=== PATIENT | female | born 1950 | race Caucasian/White ===

== ENCOUNTER 2020-05-25 16:08 | Inpatient (IN) ==
[2020-05-25 16:16] VITALS: BMI 21.4
--- NOTE | 2020-05-25 16:43 | DR.AMS ---
HPI Time Seen Time Seen by Provider: 05/25/20 16:40 PCP Primary Care Physician: LUKE HPI Comment HPI Comment: PATIENT IS 70YR OLD FEMALE IN ER WITH GENERALIZED WEAKNESS, ANOREXIA AND TROUBLE FOCUSING AND TALKING IN CYCLES THAT IS WORSE TODAY. DENIES TRAUMA, FEVER AND HEADACHE. DENIES CHEST PAIN AND NAUSEA, VOMITING OR DIARRHEA. PATIENT IS NOT EATING OR DRINKING FOR DAYS. NO DYSURIA. Complaint Cheif Complaint Doctors Comments: ANOREXIA, WEAKNESS AND TROUBLE FOCUSING AND TALKNG IN CYCLES THAT IS WORSE TODAY. Chief Complaint:: PT FAMILY STATES "BEING WEAK AND NOT EATING SINCE THURSDAY, TODAY SHE HAS HAD TROUBLE FOCUSING, TELLING THE DATE, AND ALSO TALKING IN CIRCLES." Self Treatment fo Chief Complaint: PT IS ALERT AND ORIENTED TIMES 3 COVID-19 Coronavirus risk:travel/contact w/high risk person: No Has patient experienced Coronavirus symptoms: No Reviewed Nurses Notes Reviewed: Yes Source History Provided: Patient and Family Member Mode of Arrival Mode of Arrival: Ambulatory Timing Onset of Chief Complaint: 05/25/20 Came On: Suddenly Symptoms: Improving Duration Duration: Since Onset Duration: Hours Quality Quality: Change in Behavior and Confusion Severity Severity: Moderate Context Recent: None History Of: None Associated Signs and Symptoms Associated Signs and Symptoms: Generalized Weakness, Change in Behavior, Con fusion, Change in Memory and Decreased Oral Intake PMH PMH Past Medical History: Yes Past Medical History: Anxiety and Hypertension Past Medical History Comment: MITRAL Past Surgical History: Yes Surgical History: Hysterectomy Family History History of Family Medical Conditions: Yes Family Medical History: Cancer, Coronary Artery Disease and Hypertension Social History Does any household member use tobacco: No Alcohol Use: None Do you use any recreational Drugs:: No Lives With: Family Lives Where: Home Infectious screening In the last 2 months have you had wt loss of >10#?: NO Have you had fever, night sweats or hemotysis?: No Have you traveled outside the country in the last 6 months?: No Isolation: Standard ROS Review of Systems Constitutional: See HPI, Weakness, Fatigue and Loss of Appetite; negative Fever Eyes: No Symptoms Reported and See HPI; negative Blurred Vision and Diplopia ENTM: No Symptoms Reported and See HPI; negative Ear Pain, Nose Discharge, Nose Congestion and Throat Pain Respiratoy: No Symptoms Reported and See HPI Cardiovascular: No Symptoms Reported and See HPI; negative Chest Pain Gastrointestinal/Abdominal: No Symptoms Reported and See HPI; negative Abdominal Pain, Diarrhea and Vomiting Genitourinary: No Symptoms Reported and See HPI; negative Dysuria, Frequency and Hematuria Neurological: See HPI and Weakness; negative Headache and Dizziness Musculoskeletal: No Symptoms Reported, See HPI and Back Pain Integumentary: No Symptoms Reported and See HPI; negative Change in Color, Rash and Juandice Hematologic/Lymphatic: No Symptoms Reported and See HPI; negative Easy Bruising and Swollen Glands Endocrine: No Symptoms Reported and See HPI; negative Increased Thirst and Increased Urine Psychiatric: No Symptoms Reported and See HPI All Other Systems: Reviewed and Negative PE Vitals Vital Signs: Temp Pulse Resp BP Pulse Ox 05/25/20 18:00 89 19 147/76 98 05/25/20 17:09 91 H 20 149/74 99 05/25/20 16:09 98.2 F 104 H 20 160/76 99 04/08/13 08:05 175/93 General Limitations: Altered Mental Status General Appearance: Alert and In No Apparent Distress Head Head Exam: Normal Inspection and Atraumatic Head Exam Physical: Other (NONE.) Eyes Eye exam: Normal Appearance and PERRL; negative Scleral Icterus and Conjunctival Injection Pupils: Regular, Round: Bilateral and Reactive: Bilateral ENT ENT Exam: Normal Exam, Normal Oropharynx, Normal External Ear Exam and TM's Normal Bilaterally External Ear Exam: Normal External Inspection; negative Mastoid Tenderness TM/Canal Exam: Bilateral: Normal Nose Exam: Normal Nose Exam and Sinus Tenderness Mouth Exam: Normal Inspection; negative Lip Swelling and Tongue Swelling Throat Exam: Normal Inspection; negative Tonsillar Erythema, Tonsillomegaly and Tonsillar Exudate Neck Neck Exam: Normal Inspection and Trachea Midline; negative Tenderness and Lymphadenopathy Chest Chest Inspection: Normal Inspection and Symmetric Chest Wall Rise; negative Tenderness Respiratory Respiratory Exam: Normal Lung Sounds Bilat; negative Accessory Muscle Use, Chest Wall Tenderness and Respiratory Distress Respiratory Exam: Bilateral: Rhonchi and Lower: Rhonchi Cardiovascular Cardiovascular Exam: Regular Rate, Normal Rhythm and Normal Heart Sounds; negative Systolic Murmur and Diastolic Murmur Abdominal Exam Abdominal Exam: Normal Inspection, Normal Bowel Sounds and Soft; negative Tenderness Extremities Extremities Exam: Normal Inspection and Normal Capillary Refill; negative Tenderness, Edema and Calf Tenderness Back Back Exam: Normal Inspection; negative (R) CVA Tenderness and (L) CVA Tenderness Neurological Neurological Exam: Alert, Oriented X3 and CN II-XII Intact; negative Motor Sensory Deficit Patient Oriented To: Person and Place; negative Time Cranial Nerve Exam: EOM Function (II, III, IV, ): Normal, Facial Sensation (V): Normal, Facial Palsy (VII): Normal, Gag reflex (XI): Normal and Tongue Deviation: Normal Motor Strength - LUE: 5/5 Motor Strength - RUE: 5/5 Motor Strength - LLE: 5/5 Motor Strength - RLE: 5/5 Upper Motor Neuron Exam: Babinski Sign: Normal Psychological Psychiatric Exam: Normal Affect and Normal Mood Skin Skin Exam: Dry MDM Additional Information Obtained Additional Information Obtained From: Old Records Differential Diagnosis Metabolic: Dehydration, Hypercalcemia, Hypernatremia, Hypoglycemia and Hyponatremia Structural: CVA and Mass Lesion Infectious: Sepsis and UTI COURSE Treatment Treatment: SEE ORDERS. Education/Counseling Education/Counseling: Patient Educated On: Diagnosis and Needs for Follow Up ROR Labs Reviewed Laboratory Results Reviewed?: Yes Result Diagrams: 05/30/20 04:20 05/30/20 04:20 Laboratory: WBC 7.7 X10^3/uL (3.6-10.0) 05/25/20 17:30 RBC 4.14 X10^6/uL (3.5-5.4) 05/25/20 17:30 Hgb 13.7 g/dL (12.0-16.0) 05/25/20 17:30 Hct 38.1 % (36.0-47.0) 05/25/20 17:30 MCV 92.0 fL (80.0-100.0) 05/25/20 17:30 MCH 33.0 pg (27.0-34.0) 05/25/20 17:30 MCHC 35.9 g/dL (33.0-35.0) H 05/25/20 17:30 RDW 14.0 % (11.6-16.5) 05/25/20 17:30 Plt Count 244 X10^3/uL (150.0-450.0) 05/25/20 17:30 MPV 8.1 fL (7.4-11.0) 05/25/20 17:30 Neut % (Auto) 71.2 % (42.0-75.0) 05/25/20 17:30 Lymph % (Auto) 18.3 % (21.0-51.0) L 05/25/20 17:30 [place] % (Auto) 9.2 % (0.0-13.0) 05/25/20 17:30 Eos % (Auto) 0.7 % (0.9-2.9) L 05/25/20 17:30 Baso % (Auto) 0.6 % (0.2-1.0) 05/25/20 17:30 Neut # (Auto) 5.5 x10^3/uL (2.2-4.8) H 05/25/20 17:30 Lymph # (Auto) 1.4 X10^3/uL (1.3-2.9) 05/25/20 17:30 [place] # (Auto) 0.7 x10^3/uL (0.3-0.8) 05/25/20 17:30 Eos # (Auto) 0.1 x10^3/uL (0.0-0.2) 05/25/20 17:30 Baso # (Auto) 0.0 X10^3/uL (0.0-0.1) 05/25/20 17:30 Absolute Nucleated RBC 0.0 /100WBC 05/25/20 17:30 Sodium 114 mmol/L (136-145) L* 05/25/20 17:30 Corrected Sodium TNP 05/25/20 17:30 Potassium 3.3 mmol/L (3.5-5.1) L 05/25/20 17:30 Chloride 80 mmol/L (98-107) L* 05/25/20 17:30 Carbon Dioxide 26.3 mmol/L (21-32) 05/25/20 17:30 BUN 9 mg/dL (7-18) 05/25/20 17:30 Creatinine 0.45 mg/dL (0.55-1.02) L 05/25/20 17:30 Est GFR (MDRD) Af Amer > 60 (>60) 05/25/20 17:30 Est GFR (MDRD) Non-Af > 60 (>60) 05/25/20 17:30 Glucose 101 mg/dL (65-99) H 05/25/20 17:30 Calcium 9.2 mg/dL (8.5-10.1) 05/25/20 17:30 Corrected Calcium TNP 05/25/20 17:30 Total Bilirubin 1.00 mg/dL (0.2-1.0) 05/25/20 17:30 AST 18 Units/L (15-37) 05/25/20 17:30 ALT 19 Units/L (12-78) 05/25/20 17:30 Alkaline Phosphatase 72 Units/L (46-116) 05/25/20 17:30 Creatine Kinase 72 Units/L (26-192) 05/25/20 17:30 CK-MB (CK-2) 1.8 ng/mL (0-4.0) 05/25/20 17:30 CK/CKMB % Calc 2.5 % (<4) 05/25/20 17: Troponin I < 0.02 ng/mL (0-1.5) 05/25/20 17:30 Total Protein 7.6 g/dL (6.4-8.2) 05/25/20 17: Albumin 4.0 g/dL (3.4-5.0) 05/25/20 17: Globulin 3.6 g/dL (2.5-4.5) 05/25/20 17:30 Albumin/Globulin Ratio 1.1 Ratio (1.1-2.1) 05/25/20 17:30 Specimen Type Clean catch urine 05/25/20 17:06 Urine Color Yellow (YELLOW) 05/25/20 17:06 Urine Appearance Clear (CLEAR) 05/25/20 17:06 Urine pH 5.0 (5.0 - 8.0) 05/25/20 17:06 Ur Specific [place] 1.025 (1.000-1.030) 05/25/20 17:06 Urine Protein Negative (NEGATIVE) 05/25/20 17:06 Urine Glucose (UA) Negative (NEGATIVE) 05/25/20 17:06 Urine Ketones 3+ (NEGATIVE) 05/25/20 17:06 Urine Occult Blood 3+ (NEGATIVE) 05/25/20 17:06 Urine Nitrite Negative (NEGATIVE) 05/25/20 17:06 Urine Bilirubin Negative (NEGATIVE) 05/25/20 17:06 Urine Urobilinogen Normal (NORMAL) 05/25/20 17:06 Ur Leukocyte Esterase Negative (NEGATIVE) 05/25/20 17:06 Urine RBC 5-10 /HPF (0-3) A 05/25/20 17:06 Urine WBC 0-2 /HPF (0-5) 05/25/20 17:06 Ur Squamous Epith Cells Few /HPF (NEGATIVE) 05/25/20 17:06 Urine Bacteria Trace /HPF (NEGATIVE) 05/25/20 17:06 Ur Culture Indicated? No/not indicated 05/25/20 17:06 XRAY XRAY Interpreted by: Radiologist (REPORTS NOTED AND DISCUSSED WITH PATIENT.) and Self EKG Rate: 97 [place]: Normal Rhythm: NSR Block: None Hypertrophy: LAE ST: Nonsp Opioid Opioid Risk Tool Total: 0 Total Score Risk Category: Low Risk Copyright: [place] predicting aberrant behaviors Diagnosis Discharge Problem: Acute hyponatremia, Hypokalemia, Ketonuria, Anorexia AMS (altered mental status) Qualifiers: Altered mental status type: transient alteration of awareness Qualified Code(s): R40.4 - Transient alteration of awareness Hematuria Qualifiers: Hematuria type: unspecified type Qualified Code(s): R31.9 - Hematuria, unspecified Instructions Instructions: Fall Prevention in the Home, Adult, [id number] Confusion Hypokalemia Major Depressive Disorder, Adult Supporting Someone With Depression Complicated Grieving Hypertension, [id number] Hyponatremia, [id number] Forms: Precautions for COVID19 Patient Portal Social Distancing
--- NOTE | 2020-05-25 17:28 | RAD ---
HISTORYDISORIENTED, SOB, WEAKNESSSTUDYCHEST, PA/LAT ADULTCOMPARISONNoneFINDINGSThe heart is normal. The pulmonary vessels are normal. The heart is normal. The pulmonary vessels are normal. The lungs are hyperinflated and emphysematous. There are nipple shadows projecting along the lung bases. No consolidation or effusion is seen.IMPRESSIONChronic obstructive lung changes with no acute pulmonary abnormality.Electronically signed by: ARI NATION (May 25, 2020 17:27:53)
--- NOTE | 2020-05-25 17:28 | CT ---
HISTORYDISORIENTED, SOB, WEAKNESSSTUDYBRAIN W/O CONCOMPARISONNoneTECHNIQUEMultiple axial images of the head were performed from the skull base to the vertex using standard departmental protocol. Sagittal and coronal reformatted images were performed. Dose reduction techniques including Automated Exposure Control (AEC) and adjustment of mA and kV were utilized.FINDINGSNo evidence of acute territorial infarct. No acute intracranial hemorrhage. No evidence of intracranial mass or midline shift. No hydrocephalus. No abnormal intra or extra-axial fluid collections. Mild chronic small vessel ischemic changes. Intracranial vascular calcifications.The calvaria is intact. Calcified subcutaneous lesions overlying the calvaria. The bilateral mastoid air cells and visualized paranasal sinuses are well pneumatized. The bilateral orbits are unremarkable.IMPRESSIONNo acute intracranial findings.Electronically signed by: DEVON SARMIENTO (May 25, 2020 17:30:07)
[2020-05-25 17:48] LABS: BILIRUBIN,URINE NEGATIVE (NEGATIVE); BLOOD/HEMOGLOBIN,URINE 3+ (NEGATIVE); GLUCOSE, URINE NEGATIVE (NEGATIVE); KETONES,URINE 3+ (NEGATIVE); LEUKOCYTE ESTERASE ,URINE NEGATIVE (NEGATIVE); NITRITES,URINE NEGATIVE (NEGATIVE); PROTEIN,URINE NEGATIVE (NEGATIVE); UROBILINOGEN,URINE NORMAL (NORMAL)
[2020-05-25 17:48] LABS: BASOPHILS % (AUTO) 0.6 % (0.2-1.0); EOSINOPHILS # (AUTO) 0.1 x10^3/uL (0.0-0.2); EOSINOPHILS % (AUTO) 0.7 % (0.9-2.9); HEMATOCRIT 38.1 % (36.0-47.0); HEMOGLOBIN 13.7 g/dL (12.0-16.0); LYMPHOCYTES # (AUTO) 1.4 X10^3/uL (1.3-2.9); LYMPHOCYTES % (AUTO) 18.3 % (21.0-51.0); MEAN CORPUSCULAR HGB CONC 35.9 g/dL (33.0-35.0); MEAN PLATELET VOLUME 8.1 fL (7.4-11.0); MONOCYTES # (AUTO) 0.7 x10^3/uL (0.3-0.8); MONOCYTES % (AUTO) 9.2 % (0.0-13.0); NEUTROPHILS # (AUTO) 5.5 x10^3/uL (2.2-4.8); NEUTROPHILS % (AUTO) 71.2 % (42.0-75.0); PLATELET COUNT 244 X10^3/uL (150.0-450.0); RED BLOOD COUNT 4.14 X10^6/uL (3.5-5.4); WHITE BLOOD COUNT 7.7 X10^3/uL (3.6-10.0)
[2020-05-25 18:10] LABS: APPEARANCE,URINE CLEAR (CLEAR); COLOR,URINE YELLOW (YELLOW)
[2020-05-25 18:11] LABS: BACTERIA,URINE TRACE /HPF (NEGATIVE); SQUAMOUS EPITHELIAL CELL,UR FEW /HPF (NEGATIVE)
[2020-05-25 18:13] LABS: ALANINE AMINOTRANSFERASE 19 Units/L (12-78); ALKALINE PHOSPHATASE 72 Units/L (46-116); ASPARTATE AMINO TRANSFERASE 18 Units/L (15-37); BLOOD UREA NITROGEN 9 mg/dL (7-18); CALCIUM 9.2 mg/dL (8.5-10.1); CARBON DIOXIDE 26.3 mmol/L (21-32); CKMB % 2.5 % (<4); CREATINE KINASE 72 Units/L (26-192); CREATINE KINASE MB 1.8 ng/mL (0-4.0); CREATININE 0.45 mg/dL (0.55-1.02); TOTAL PROTEIN 7.6 g/dL (6.4-8.2); TROPONIN I < 0.02 ng/mL (0-1.5); eGFR NON BLACK RACES > 60 (>60)
[2020-05-25 18:15] LABS: CHLORIDE 80 mmol/L (98-107); SODIUM 114 mmol/L (136-145)
[2020-05-25] MEDS ORDERED: NS 1000 ML 1,000 ML ONE (18:24)
[2020-05-25] MEDS ORDERED: NS 1000 ML 1,000 ML IV ONE (18:34)
[2020-05-25] MEDS ORDERED: NS 1/2 1000 ML IV 1,000 ML IV ONE (19:45)
[2020-05-25] MEDS: NS 1/2 1000 ML IV 1,000 ML IV SCH (20:03)
[2020-05-25] MEDS ORDERED: VITAMIN D (1.25MG) PO SCH (20:47)
[2020-05-25] MEDS: MEGACE PO SCH (22:00)
[2020-05-25] MEDS: PEPCID TAB 20 MG PO SCH (22:00)
[2020-05-25 22:07] LABS: BILIRUBIN,URINE NEGATIVE (NEGATIVE); BLOOD/HEMOGLOBIN,URINE 3+ (NEGATIVE); GLUCOSE, URINE NEGATIVE (NEGATIVE); KETONES,URINE 3+ (NEGATIVE); LEUKOCYTE ESTERASE ,URINE NEGATIVE (NEGATIVE); NITRITES,URINE NEGATIVE (NEGATIVE); PROTEIN,URINE NEGATIVE (NEGATIVE); UROBILINOGEN,URINE NORMAL (NORMAL)
[2020-05-25 22:12] LABS: APPEARANCE,URINE CLEAR (CLEAR); BACTERIA,URINE NEGATIVE /HPF (NEGATIVE); COLOR,URINE YELLOW (YELLOW); RBC,URINE 0-2 /HPF (0-3); SQUAMOUS EPITHELIAL CELL,UR RARE /HPF (NEGATIVE)
[2020-05-25] MEDS ORDERED: NORCO 5/325 MG TAB ONE (22:54)
[2020-05-25] MEDS: NORCO 5/325 MG TAB PO PRN (22:57)
[2020-05-25 23:50] LABS: CKMB % 1.8 % (<4); CREATINE KINASE 83 Units/L (26-192); CREATINE KINASE MB 1.5 ng/mL (0-4.0); TROPONIN I < 0.02 ng/mL (0-1.5)
[2020-05-26] MEDS ORDERED: K-RIDER 10 MEQ/NS 100 ML 10 MEQ/100 ML BAG IV PRN (00:47)
[2020-05-26] MEDS ORDERED: POTASSIUM CHL 40 MEQ/NS 0.45% 500 ML IV PRN (00:47)
[2020-05-26] MEDS ORDERED: POTASSIUM CHLORIDE LIQ 20 MEQ UDC PO PRN (00:47)
[2020-05-26] MEDS ORDERED: MICRO K EXTEN CAP 10 MEQ PO PRN (00:47)
[2020-05-26] MEDS ORDERED: KLOR-CON PO PRN (00:47)
[2020-05-26] MEDS ORDERED: POTASSIUM CHL 60 MEQ/NS 0.45% 500 ML IV PRN (00:47)
[2020-05-26] MEDS ORDERED: K-DUR TAB 20 MEQ PO ONE (00:56)
[2020-05-26] MEDS: K-DUR TAB 20 MEQ PO PRN ×2 (00:59→06:15)
[2020-05-26 05:12] LABS: BASOPHILS % (AUTO) 0.7 % (0.2-1.0); EOSINOPHILS # (AUTO) 0.1 x10^3/uL (0.0-0.2); EOSINOPHILS % (AUTO) 1.1 % (0.9-2.9); HEMATOCRIT 36.8 % (36.0-47.0); HEMOGLOBIN 13.2 g/dL (12.0-16.0); LYMPHOCYTES # (AUTO) 1.4 X10^3/uL (1.3-2.9); MEAN CORPUSCULAR HGB CONC 35.9 g/dL (33.0-35.0); MEAN CORPUSCULAR VOLUME 91.9 fL (80.0-100.0); MEAN PLATELET VOLUME 8.1 fL (7.4-11.0); MONOCYTES # (AUTO) 0.5 x10^3/uL (0.3-0.8); MONOCYTES % (AUTO) 8.8 % (0.0-13.0); NEUTROPHILS # (AUTO) 3.6 x10^3/uL (2.2-4.8); NEUTROPHILS % (AUTO) 64.4 % (42.0-75.0); PLATELET COUNT 230 X10^3/uL (150.0-450.0); RED BLOOD COUNT 4.01 X10^6/uL (3.5-5.4); RED CELL DISTRIBUTION WIDTH 13.6 % (11.6-16.5); WHITE BLOOD COUNT 5.6 X10^3/uL (3.6-10.0)
[2020-05-26 05:37] LABS: ALANINE AMINOTRANSFERASE 17 Units/L (12-78); ALBUMIN 3.5 g/dL (3.4-5.0); ALKALINE PHOSPHATASE 69 Units/L (46-116); ASPARTATE AMINO TRANSFERASE 18 Units/L (15-37); BLOOD UREA NITROGEN 5 mg/dL (7-18); CALCIUM 8.6 mg/dL (8.5-10.1); CARBON DIOXIDE 27.1 mmol/L (21-32); CHLORIDE 86 mmol/L (98-107); CKMB % 1.4 % (<4); CREATINE KINASE 111 Units/L (26-192); CREATINE KINASE MB 1.6 ng/mL (0-4.0); CREATININE 0.43 mg/dL (0.55-1.02); MAGNESIUM 1.7 mg/dL (1.7-2.9); TROPONIN I < 0.02 ng/mL (0-1.5); eGFR NON BLACK RACES > 60 (>60)
[2020-05-26 05:52] LABS: SODIUM 118 mmol/L (136-145)
[2020-05-26] MEDS: MAGNESIUM SULFATE 1 GRAM/100 mL PREMIX 1 GM/100 ML BAG IV PRN ×2 (06:14→08:28)
[2020-05-26] MEDS ORDERED: PATIENT'S HOME MEDICATION (Levocetirizine 5 MG) PO SCH (09:00)
--- NOTE | 2020-05-26 10:32 | DR.H&P ---
H&P - History & Physical for Day of: H&P Date: 05/25/20 - Chief Complaint Chief Complaint: WEAKNESS, CONFUSION - History of Present Illness History of Present Illness: PT IS 70WF ER ADMISSION WITH CO NO EATING OR DRINKING X 2-3 DAYS WITH INCREASED WEAKNESS AND CONFUSION. PT HAD NA 114 IN ER, CT HEAD WITHOUT ACUTE FINDING. PT ADMITTED FOR TREATMENT OF SEVERE HYPONATREMIA. - Past Medical History Past Medical History: Hypertension, Anxiety - Past Surgical History Surgical History: Hysterectomy - Family History Family Medical History: Cancer, Coronary Artery Disease, Hypertension - Social History Does any household member use tobacco: No Alcohol Use: None Drug Use: None - Medications Home Medications: Penicillins Adverse Reaction (Verified 05/25/20 19:03) pseudoephedrine Adverse Reaction (Verified 05/25/20 19:04) Sulfa (Sulfonamide Antibiotics) [SULFA] Adverse Reaction (Verified 05/25/20 19:04) triprolidine Adverse Reaction (Verified 05/25/20 19:04) CONTINUE taking the following medications clonazepam 0.5 mg PO DAILY 05/25/20 [History] doxycycline hyclate 100 mg PO BID 05/25/20 [History] ergocalciferol (vitamin D2) 1,250 mcg PO WEEKLY 05/25/20 [History] famotidine 20 mg PO BID 05/25/20 [History] levocetirizine 5 mg PO DAILY 05/25/20 [History] lisinopril 10 mg PO DAILY 05/25/20 [History] megestrol 40 mg PO BID 05/25/20 [History] metoprolol succinate 25 mg PO DAILY 05/25/20 [History] montelukast 10 mg PO DAILY 05/25/20 [History] rosuvastatin 5 mg PO DAILY 05/25/20 [History] - Review of Systems Constitutional: Weakness Eyes: No Symptoms Reported ENT: No Symptoms Reported Respiratory: No Symptoms Reported Gastrointestinal: No Symptoms Reported Genitourinary: No Symptoms Reported Musculoskeletal: No Symptoms Reported Skin: No Symptoms Reported Neurological: Weakness, Confusion - Physical Exam Vital Signs: Temperature 98.0 F Pulse Rate [Left Brachial] 78 Pulse Rate 89 Respiratory Rate 20 Blood Pressure [Right Arm] 151/67 Blood Pressure 147/76 O2 Sat by Pulse Oximetry 100 Oriented: Person Eyes: Normal Ear: Normal Nose: Normal Throat: Dry Respiratory: RLL Diminished, LLL Diminished Cardiovascular: Tachycardia : Normal Auscultation: Bowel Sounds: Normal Palpation: Normal Tenderness: Normal Musculoskeletal: Right, Left, Motor Deficit Psychiatric: Anxiety Affect: Anxious Speech Pattern: Delayed - Assessment/Plan (1) AMS (altered mental status) Qualifiers: Altered mental status type: transient alteration of awareness Qualified Code(s): R40.4 - Transient alteration of awareness Status: Acute Plan: ADMIT, CT HEAD ON ADMISSION. GENTLE IV HYDRATION, STRICT I&O. ADMISSION CXR, DAILY LABS, BP CONTROL. CONFIRM HOME MEDICATION, HOLD ANY DIURETICS ON ADMISSION. NEURO CHECKS Q 4 X 24 (2) Acute hyponatremia Status: Acute (3) Benign hypertension Status: Active - Allergies Allergies/Adverse Reactions: Allergies Allergy/AdvReac Type Severity Reaction Status Date / Time Penicillins AdvReac Verified 05/25/20 19:03 pseudoephedrine AdvReac Verified 05/25/20 19:04 Sulfa (Sulfonamide AdvReac Verified 05/25/20 19:04 Antibiotics) [SULFA] triprolidine AdvReac Verified 05/25/20 19:04
[2020-05-26] MEDS: ZESTRIL TAB 10 MG PO SCH (10:36)
[2020-05-26] MEDS: KLONOPIN TAB 0.5 MG PO SCH (10:37)
[2020-05-26] MEDS: MEGACE PO SCH ×2 (10:38→21:09)
[2020-05-26] MEDS: PEPCID TAB 20 MG PO SCH ×2 (10:38→21:09)
[2020-05-26] MEDS: CRESTOR TAB 10 MG PO SCH (10:38)
[2020-05-26] MEDS: ZyrTEC TAB 10 MG PO SCH (10:39)
[2020-05-26] MEDS: TOPROL XL PO SCH (10:39)
[2020-05-26] MEDS: SINGULAIR TAB 10 MG PO SCH (10:43)
[2020-05-26 10:56] LABS: FREE T4 (FREE THYROXINE) 1.46 ng/dL (0.76-1.46); TSH (3RD GENERATION) 1.783 uIU/mL (0.358-3.74)
[2020-05-26] MEDS ORDERED: VIBRAMYCIN PO ONE (13:40)
[2020-05-26] MEDS: VIBRAMYCIN PO SCH ×2 (13:55→21:10)
[2020-05-26] MEDS ORDERED: NS 1/2 1000 ML IV 1,000 ML IV ONE (19:23)
[2020-05-26] MEDS: NS 1/2 1000 ML IV 1,000 ML IV SCH (19:24)
[2020-05-26] MEDS: NORCO 5/325 MG TAB PO PRN (21:10)
[2020-05-27] MEDS ORDERED: NS 1/2 1000 ML IV 1,000 ML IV ONE (05:14)
[2020-05-27 05:40] LABS: BASOPHILS % (AUTO) 0.6 % (0.2-1.0); EOSINOPHILS % (AUTO) 0.6 % (0.9-2.9); HEMATOCRIT 35.4 % (36.0-47.0); HEMOGLOBIN 12.5 g/dL (12.0-16.0); LYMPHOCYTES # (AUTO) 1.9 X10^3/uL (1.3-2.9); LYMPHOCYTES % (AUTO) 23.1 % (21.0-51.0); MEAN CORPUSCULAR HEMOGLOBIN 32.8 pg (27.0-34.0); MEAN CORPUSCULAR HGB CONC 35.3 g/dL (33.0-35.0); MEAN PLATELET VOLUME 8.4 fL (7.4-11.0); MONOCYTES # (AUTO) 0.8 x10^3/uL (0.3-0.8); NEUTROPHILS # (AUTO) 5.6 x10^3/uL (2.2-4.8); NEUTROPHILS % (AUTO) 66.7 % (42.0-75.0); PLATELET COUNT 224 X10^3/uL (150.0-450.0); RED BLOOD COUNT 3.81 X10^6/uL (3.5-5.4); RED CELL DISTRIBUTION WIDTH 14.4 % (11.6-16.5); WHITE BLOOD COUNT 8.4 X10^3/uL (3.6-10.0)
[2020-05-27] MEDS: NS 1/2 1000 ML IV 1,000 ML IV SCH ×2 (05:44→22:45)
[2020-05-27 05:56] LABS: ALANINE AMINOTRANSFERASE 14 Units/L (12-78); ALKALINE PHOSPHATASE 57 Units/L (46-116); ASPARTATE AMINO TRANSFERASE 12 Units/L (15-37); BLOOD UREA NITROGEN 6 mg/dL (7-18); CALCIUM 8.3 mg/dL (8.5-10.1); CHLORIDE 96 mmol/L (98-107); COR CA(FOR HYPOALB) 9.1 mg/dL (8.5-10.1); CREATININE 0.39 mg/dL (0.55-1.02); MAGNESIUM 2.1 mg/dL (1.7-2.9); SODIUM 129 mmol/L (136-145); TOTAL PROTEIN 6.3 g/dL (6.4-8.2); eGFR NON BLACK RACES > 60 (>60)
[2020-05-27] MEDS: CRESTOR TAB 10 MG PO SCH (08:53)
[2020-05-27] MEDS: KLONOPIN TAB 0.5 MG PO SCH (08:55)
[2020-05-27] MEDS: MEGACE PO SCH ×2 (08:55→21:30)
[2020-05-27] MEDS: PEPCID TAB 20 MG PO SCH ×2 (08:55→21:30)
[2020-05-27] MEDS: TOPROL XL PO SCH (08:56)
[2020-05-27] MEDS: VIBRAMYCIN PO SCH ×2 (08:56→21:30)
[2020-05-27] MEDS: SINGULAIR TAB 10 MG PO SCH (08:56)
[2020-05-27] MEDS: ZyrTEC TAB 10 MG PO SCH (08:57)
[2020-05-27] MEDS: ZESTRIL TAB 10 MG PO SCH (08:57)
[2020-05-27] MEDS ORDERED: MILK OF MAGNESIA ONE (09:54)
[2020-05-27] MEDS: MILK OF MAGNESIA PO SCH ×2 (10:00→21:30)
[2020-05-27] MEDS: NORCO 5/325 MG TAB PO PRN (10:00)
[2020-05-27] MEDS: COLACE CAP 100 MG PO SCH (21:30)
[2020-05-28 05:51] LABS: BASOPHILS # (AUTO) 0.1 X10^3/uL (0.0-0.1); BASOPHILS % (AUTO) 0.8 % (0.2-1.0); EOSINOPHILS # (AUTO) 0.1 x10^3/uL (0.0-0.2); EOSINOPHILS % (AUTO) 1.6 % (0.9-2.9); HEMATOCRIT 38.8 % (36.0-47.0); HEMOGLOBIN 13.2 g/dL (12.0-16.0); LYMPHOCYTES # (AUTO) 2.3 X10^3/uL (1.3-2.9); LYMPHOCYTES % (AUTO) 37.4 % (21.0-51.0); MEAN CORPUSCULAR HEMOGLOBIN 32.5 pg (27.0-34.0); MEAN CORPUSCULAR HGB CONC 34.1 g/dL (33.0-35.0); MEAN CORPUSCULAR VOLUME 95.2 fL (80.0-100.0); MONOCYTES # (AUTO) 0.5 x10^3/uL (0.3-0.8); MONOCYTES % (AUTO) 8.8 % (0.0-13.0); NEUTROPHILS # (AUTO) 3.1 x10^3/uL (2.2-4.8); NEUTROPHILS % (AUTO) 51.4 % (42.0-75.0); PLATELET COUNT 230 X10^3/uL (150.0-450.0); RED BLOOD COUNT 4.07 X10^6/uL (3.5-5.4); RED CELL DISTRIBUTION WIDTH 14.4 % (11.6-16.5); WHITE BLOOD COUNT 6.1 X10^3/uL (3.6-10.0)
[2020-05-28 06:10] LABS: ALANINE AMINOTRANSFERASE 17 Units/L (12-78); ALBUMIN 3.1 g/dL (3.4-5.0); ALKALINE PHOSPHATASE 59 Units/L (46-116); ASPARTATE AMINO TRANSFERASE 13 Units/L (15-37); BLOOD UREA NITROGEN 10 mg/dL (7-18); CALCIUM 8.6 mg/dL (8.5-10.1); CARBON DIOXIDE 24.1 mmol/L (21-32); CHLORIDE 97 mmol/L (98-107); COR CA(FOR HYPOALB) 9.3 mg/dL (8.5-10.1); CREATININE 0.46 mg/dL (0.55-1.02); SODIUM 131 mmol/L (136-145); TOTAL PROTEIN 6.8 g/dL (6.4-8.2); eGFR NON BLACK RACES > 60 (>60)
[2020-05-28] MEDS: KLONOPIN TAB 0.5 MG PO SCH ×2 (08:58→21:53)
[2020-05-28] MEDS: CRESTOR TAB 10 MG PO SCH (08:58)
[2020-05-28] MEDS: MILK OF MAGNESIA PO SCH ×2 (08:59→21:54)
[2020-05-28] MEDS: MEGACE PO SCH ×2 (08:59→21:54)
[2020-05-28] MEDS: TOPROL XL PO SCH (09:00)
[2020-05-28] MEDS: ZESTRIL TAB 10 MG PO SCH (09:01)
[2020-05-28] MEDS: ZyrTEC TAB 10 MG PO SCH (09:01)
[2020-05-28] MEDS: VIBRAMYCIN PO SCH ×2 (09:01→21:54)
[2020-05-28] MEDS: SINGULAIR TAB 10 MG PO SCH (09:10)
[2020-05-28] MEDS: LOVENOX INJ 40 MG SYR SC SCH (11:01)
[2020-05-28] MEDS: PEPCID TAB 20 MG PO SCH ×2 (11:10→21:54)
[2020-05-28] MEDS ORDERED: NS 1/2 1000 ML IV 1,000 ML IV ONE (18:24)
[2020-05-28] MEDS: NS 1/2 1000 ML IV 1,000 ML IV SCH (18:25)
--- NOTE | 2020-05-28 20:00 | PCM.PROG ---
Progress Note - Progress Note for Day of Date of Exam: 05/28/20 - Subjective Subjective: WAS ADMITTED ON 05/25 FOR TREATMENT OF HYPONATREMIA AND ALTERED MENTAL STATUS. TODAY, SHE IS ALERT AND ORIENTED, SITTING UP IN BED ON MORNING ROUNDS. SHE REPORTS THAT SHE HAS BEEN DEPRESSED OVER THE PAST FEW WEEKS AND HAS NOT BEEN EATING OR SLEEPING WELL. SHE REPORTS WEAKNESS AND LACK OF ENERGY TODAY. ON EXAMINATION, HEART IS REGULAR IN RATE AND RHYTHM. BILATERAL LUNGS ARE NOTED WITH DIMINISHED LUNG SOUNDS THROUGHOUT. ABDOMEN IS FLAT, SOFT, AND NON-TENDER WITH NORMAL BOWEL SOUNDS NOTED IN ALL QUADRANTS. HER VITALS THIS MORNING ARE: 99.4-91-20-100%-133/65. LABS WERE OBTAINED. ABNORMAL LAB VALUES INCLUDE THE FOLLOWING: SODIUM 131, CHLORIDE 97, CREATININE 0.46, AST 13, ALBUMIN 3.1. SHE IS CURRENTLY RECEIVING 1/2NS AT 50 ML/HR, THE POTASSIUM AND MAGNESIUM PROTOCOLS, LOVENOX 40MG SC DAILY, AND HER HOME MEDICATIONS WERE RESUMED. WE WILL CONTINUE WITH CURRENT PLAN OF CARE TODAY AND CHECK A URINE SODIUM LEVEL. OTHERWISE, WE WILL FOLLOW UP WITH AM LABS AND CONTINUE TO MONITOR. - Past Medical Family Social History Past Med/Fam/Surg Hx: No changes since H&P Allergies: Allergies Penicillins Adverse Reaction (Verified 05/25/20 19:03) pseudoephedrine Adverse Reaction (Verified 05/25/20 19:04) Sulfa (Sulfonamide Antibiotics) [SULFA] Adverse Reaction (Verified 05/25/20 19:04) triprolidine Adverse Reaction (Verified 05/25/20 19:04) - Review of Systems ROS: No change since H&P - Vital Signs and I&O's Vital Signs: Temperature 98.6 F Pulse Rate [Left Brachial] 110 Pulse Rate 89 Respiratory Rate 20 Blood Pressure [Right Arm] 136/66 Blood Pressure 147/76 O2 Sat by Pulse Oximetry 99 Intake and Output: Intake & Output 05/26/20 05/27/20 05/28/20 05/29/20 11:59 11:59 11:59 11:59 Intake Total 975 / 975 2206 / 2206 1668 / 1668 880 / 880 Output Total 150 / 150 Balance 975 / 975 2206 / 2206 1518 / 1518 880 / 880 - Physical Exam Oriented: Normal Eyes: Normal Ear: Normal Nose: Normal Throat: Normal Respiratory: Generalized, Diminished Cardiovascular: Normal : Normal Auscultation: Bowel Sounds: Normal Palpation: Normal Tenderness: Normal Skin: Normal Musculoskeletal: Right, Left, Motor Deficit Psychiatric: Anxiety Affect: Anxious Speech Pattern: Clear, Appropriate - Laboratory and Diagnostics Result Diagrams: 05/28/20 04:05 05/28/20 04:05 Labs: Laboratory WBC 6.1 X10^3/uL (3.6-10.0) 05/28/20 04:05 RBC 4.07 X10^6/uL (3.5-5.4) 05/28/20 04:05 Hgb 13.2 g/dL (12.0-16.0) 05/28/20 04:05 Hct 38.8 % (36.0-47.0) 05/28/20 04:05 MCV 95.2 fL (80.0-100.0) 05/28/20 04:05 MCH 32.5 pg (27.0-34.0) 05/28/20 04:05 MCHC 34.1 g/dL (33.0-35.0) 05/28/20 04:05 RDW 14.4 % (11.6-16.5) 05/28/20 04:05 Plt Count 230 X10^3/uL (150.0-450.0) 05/28/20 04:05 MPV 9.0 fL (7.4-11.0) 05/28/20 04:05 Neut % (Auto) 51.4 % (42.0-75.0) 05/28/20 04:05 Lymph % (Auto) 37.4 % (21.0-51.0) 05/28/20 04:05 [place] % (Auto) 8.8 % (0.0-13.0) 05/28/20 04:05 Eos % (Auto) 1.6 % (0.9-2.9) 05/28/20 04:05 Baso % (Auto) 0.8 % (0.2-1.0) 05/28/20 04:05 Neut # (Auto) 3.1 x10^3/uL (2.2-4.8) 05/28/20 04:05 Lymph # (Auto) 2.3 X10^3/uL (1.3-2.9) 05/28/20 04:05 [place] # (Auto) 0.5 x10^3/uL (0.3-0.8) 05/28/20 04:05 Eos # (Auto) 0.1 x10^3/uL (0.0-0.2) 05/28/20 04:05 Baso # (Auto) 0.1 X10^3/uL (0.0-0.1) 05/28/20 04:05 Absolute Nucleated RBC 0.0 /100WBC 05/28/20 04:05 PT 13.4 SECONDS (11.8-14.3) 05/26/20 04:30 INR Target Range - 05/26/20 04:30 INR 1.05 (0.8-1.3) 05/26/20 04:30 APTT 28.0 SECONDS (22.9-36.5) 05/26/20 04:30 PTT Comment - 05/26/20 04:30 Sodium 131 mmol/L (136-145) L 05/28/20 04:05 Corrected Sodium TNP 05/28/20 04:05 Potassium 3.9 mmol/L (3.5-5.1) 05/28/20 04:05 Chloride 97 mmol/L (98-107) L 05/28/20 04:05 Carbon Dioxide 24.1 mmol/L (21-32) 05/28/20 04:05 BUN 10 mg/dL (7-18) 05/28/20 04:05 Creatinine 0.46 mg/dL (0.55-1.02) L 05/28/20 04:05 Est GFR (MDRD) Af Amer > 60 (>60) 05/28/20 04:05 Est GFR (MDRD) Non-Af > 60 (>60) 05/28/20 04:05 Glucose 88 mg/dL (65-99) 05/28/20 04:05 Calcium 8.6 mg/dL (8.5-10.1) 05/28/20 04:05 Corrected Calcium 9.3 mg/dL (8.5-10.1) 05/28/20 04:05 Magnesium 2.1 mg/dL (1.7-2.9) 05/27/20 04:04 Total Bilirubin 0.40 mg/dL (0.2-1.0) 05/28/20 04:05 AST 13 Units/L (15-37) L 05/28/20 04:05 ALT 17 Units/L (12-78) 05/28/20 04:05 Alkaline Phosphatase 59 Units/L (46-116) 05/28/20 04:05 Creatine Kinase 111 Units/L (26-192) 05/26/20 04:30 CK-MB (CK-2) 1.6 ng/mL (0-4.0) 05/26/20 04:30 CK/CKMB % Calc 1.4 % (<4) 05/26/20 04:30 Troponin I < 0.02 ng/mL (0-1.5) 05/26/20 04:30 Total Protein 6.8 g/dL (6.4-8.2) 05/28/20 04:05 Albumin 3.1 g/dL (3.4-5.0) L 05/28/20 04:05 Globulin 3.7 g/dL (2.5-4.5) 05/28/20 04:05 Albumin/Globulin Ratio 0.8 Ratio (1.1-2.1) L 05/28/20 04:05 Free T4 1.46 ng/dL (0.76-1.46) 05/26/20 04:30 TSH 3rd Generation 1.783 uIU/mL (0.358-3.74) 05/26/20 04:30 Specimen Type Clean catch urine 05/25/20 21:45 Urine Color Yellow (YELLOW) 05/25/20 21:45 Urine Appearance Clear (CLEAR) 05/25/20 21:45 Urine pH 5.0 (5.0 - 8.0) 05/25/20 21:45 Ur Specific [place] 1.020 (1.000-1.030) 05/25/20 21:45 Urine Protein Negative (NEGATIVE) 05/25/20 21:45 Urine Glucose (UA) Negative (NEGATIVE) 05/25/20 21:45 Urine Ketones 3+ (NEGATIVE) 05/25/20 21:45 Urine Occult Blood 3+ (NEGATIVE) 05/25/20 21:45 Urine Nitrite Negative (NEGATIVE) 05/25/20 21:45 Urine Bilirubin Negative (NEGATIVE) 05/25/20 21:45 Urine Urobilinogen Normal (NORMAL) 05/25/20 21:45 Ur Leukocyte Esterase Negative (NEGATIVE) 05/25/20 21:45 Urine RBC 0-2 /HPF (0-3) 05/25/20 21:45 Urine WBC None seen /HPF (0-5) 05/25/20 21:45 Ur Squamous Epith Cells Rare /HPF (NEGATIVE) 05/25/20 21:45 Urine Bacteria Negative /HPF (NEGATIVE) 05/25/20 21:45 Ur Culture Indicated? No/not indicated 05/25/20 21:45 Ur Random Sodium 160 mmol/L (40-220) 05/28/20 12:00 - Plan (1) Acute hyponatremia Status: Acute Plan: 1/2NS AT 50 ML/HR, THE POTASSIUM AND MAGNESIUM PROTOCOLS, LOVENOX 40MG SC DAILY, AND HER HOME MEDICATIONS WERE RESUMED (2) AMS (altered mental status) Status: Acute Qualifiers: Altered mental status type: transient alteration of awareness Qualified Code(s): R40.4 - Transient alteration of awareness (3) Benign hypertension Status: Active
[2020-05-28] MEDS: COLACE CAP 100 MG PO SCH (21:53)
[2020-05-29 06:35] LABS: BASOPHILS # (AUTO) 0.1 X10^3/uL (0.0-0.1); EOSINOPHILS # (AUTO) 0.1 x10^3/uL (0.0-0.2); EOSINOPHILS % (AUTO) 1.7 % (0.9-2.9); HEMATOCRIT 36.4 % (36.0-47.0); HEMOGLOBIN 12.6 g/dL (12.0-16.0); LYMPHOCYTES # (AUTO) 1.8 X10^3/uL (1.3-2.9); LYMPHOCYTES % (AUTO) 34.2 % (21.0-51.0); MEAN CORPUSCULAR HEMOGLOBIN 32.7 pg (27.0-34.0); MEAN CORPUSCULAR HGB CONC 34.7 g/dL (33.0-35.0); MEAN CORPUSCULAR VOLUME 94.2 fL (80.0-100.0); MEAN PLATELET VOLUME 8.1 fL (7.4-11.0); MONOCYTES # (AUTO) 0.5 x10^3/uL (0.3-0.8); MONOCYTES % (AUTO) 8.9 % (0.0-13.0); NEUTROPHILS # (AUTO) 2.8 x10^3/uL (2.2-4.8); NEUTROPHILS % (AUTO) 54.2 % (42.0-75.0); PLATELET COUNT 217 X10^3/uL (150.0-450.0); RED BLOOD COUNT 3.87 X10^6/uL (3.5-5.4); RED CELL DISTRIBUTION WIDTH 14.4 % (11.6-16.5); WHITE BLOOD COUNT 5.2 X10^3/uL (3.6-10.0)
[2020-05-29 06:54] LABS: ALANINE AMINOTRANSFERASE 16 Units/L (12-78); ALKALINE PHOSPHATASE 56 Units/L (46-116); ASPARTATE AMINO TRANSFERASE 16 Units/L (15-37); BLOOD UREA NITROGEN 7 mg/dL (7-18); CALCIUM 8.7 mg/dL (8.5-10.1); CARBON DIOXIDE 24.1 mmol/L (21-32); CHLORIDE 98 mmol/L (98-107); COR CA(FOR HYPOALB) 9.5 mg/dL (8.5-10.1); CREATININE 0.42 mg/dL (0.55-1.02); SODIUM 131 mmol/L (136-145); TOTAL PROTEIN 6.4 g/dL (6.4-8.2); eGFR NON BLACK RACES > 60 (>60)
[2020-05-29] MEDS: CRESTOR TAB 10 MG PO SCH (09:25)
[2020-05-29] MEDS: LOVENOX INJ 40 MG SYR SC SCH (09:25)
[2020-05-29] MEDS: PEPCID TAB 20 MG PO SCH ×2 (09:26→21:10)
[2020-05-29] MEDS: TOPROL XL PO SCH (09:27)
[2020-05-29] MEDS: SINGULAIR TAB 10 MG PO SCH (09:27)
[2020-05-29] MEDS: VIBRAMYCIN PO SCH ×2 (09:28→21:11)
[2020-05-29] MEDS: ZyrTEC TAB 10 MG PO SCH (09:28)
[2020-05-29] MEDS: MEGACE PO SCH ×2 (09:32→21:10)
[2020-05-29] MEDS: ZESTRIL TAB 10 MG PO SCH (09:32)
[2020-05-29] MEDS ORDERED: NS 1000 ML 1,000 ML IV SCH (11:00)
[2020-05-29] MEDS: NS 500 ML IV 500 ML IV SCH (12:08)
[2020-05-29] MEDS: MILK OF MAGNESIA PO SCH ×2 (12:09→21:10)
--- NOTE | 2020-05-29 13:29 | PCM.PROG ---
Progress Note - Progress Note for Day of Date of Exam: 05/29/20 - Subjective Subjective: WAS ADMITTED ON 05/25 FOR TREATMENT OF HYPONATREMIA AND ALTERED MENTAL STATUS. TODAY, SHE IS ALERT AND ORIENTED, SITTING UP IN BED ON MORNING ROUNDS. SHE CONTINUES TO REPORT WEAKNESS AND LACK OF ENERGY TODAY. ON EXAMINATION, HEART IS REGULAR IN RATE AND RHYTHM. BILATERAL LUNGS ARE NOTED WITH DIMINISHED LUNG SOUNDS THROUGHOUT. ABDOMEN IS FLAT, SOFT, AND NON-TENDER WITH NORMAL BOWEL SOUNDS NOTED IN ALL QUADRANTS. HER VITALS THIS MORNING ARE: 97.3-126-97-100%-142/70. LABS WERE OBTAINED. ABNORMAL LAB VALUES INCLUDE THE FOLLOWING: SODIUM 131, CREATININE 0.42, ALBUMIN 3.0, URINE SODIUM 160. SHE IS CURRENTLY RECEIVING 1/2NS AT 50 ML/HR, THE POTASSIUM AND MAGNESIUM PROTOCOLS, LOVENOX 40MG SC DAILY, AND HER HOME MEDICATIONS WERE RESUMED. TODAY, WE WILL CHANGE HER IV FLUIDS TO NORMAL SALINE. OTHERWISE, WE WILL FOLLOW UP WITH AM LABS AND CONTINUE TO MONITOR. - Past Medical Family Social History Past Med/Fam/Surg Hx: No changes since H&P Allergies: Allergies Penicillins Adverse Reaction (Verified 05/25/20 19:03) pseudoephedrine Adverse Reaction (Verified 05/25/20 19:04) Sulfa (Sulfonamide Antibiotics) [SULFA] Adverse Reaction (Verified 05/25/20 19:04) triprolidine Adverse Reaction (Verified 05/25/20 19:04) - Review of Systems ROS: No change since H&P - Vital Signs and I&O's Vital Signs: Temperature 97.6 F Pulse Rate [Left Brachial] 107 Pulse Rate 89 Respiratory Rate 18 Blood Pressure [Right Arm] 142/70 Blood Pressure 147/76 O2 Sat by Pulse Oximetry 100 Intake and Output: Intake & Output 05/27/20 05/28/20 05/29/20 05/30/20 11:59 11:59 11:59 11:59 Intake Total 2205 / 2205 1668 / 1668 1874 Output Total 150 / 150 Balance 2205 / 2205 1518 / 1518 1874 - Physical Exam Oriented: Normal Eyes: Normal Ear: Normal Nose: Normal Throat: Normal Respiratory: Generalized, Diminished Cardiovascular: Normal : Normal Auscultation: Bowel Sounds: Normal Palpation: Normal Tenderness: Normal Skin: Normal Musculoskeletal: Right, Left, Motor Deficit Psychiatric: Anxiety Affect: Anxious Speech Pattern: Clear, Appropriate - Laboratory and Diagnostics Result Diagrams: 05/29/20 05:10 05/29/20 05:10 Labs: Laboratory WBC 5.2 X10^3/uL (3.6-10.0) 05/29/20 05:10 RBC 3.87 X10^6/uL (3.5-5.4) 05/29/20 05:10 Hgb 12.6 g/dL (12.0-16.0) 05/29/20 05:10 Hct 36.4 % (36.0-47.0) 05/29/20 05:10 MCV 94.2 fL (80.0-100.0) 05/29/20 05:10 MCH 32.7 pg (27.0-34.0) 05/29/20 05:10 MCHC 34.7 g/dL (33.0-35.0) 05/29/20 05:10 RDW 14.4 % (11.6-16.5) 05/29/20 05:10 Plt Count 217 X10^3/uL (150.0-450.0) 05/29/20 05:10 MPV 8.1 fL (7.4-11.0) 05/29/20 05:10 Neut % (Auto) 54.2 % (42.0-75.0) 05/29/20 05:10 Lymph % (Auto) 34.2 % (21.0-51.0) 05/29/20 05:10 [place] % (Auto) 8.9 % (0.0-13.0) 05/29/20 05:10 Eos % (Auto) 1.7 % (0.9-2.9) 05/29/20 05:10 Baso % (Auto) 1.0 % (0.2-1.0) 05/29/20 05:10 Neut # (Auto) 2.8 x10^3/uL (2.2-4.8) 05/29/20 05:10 Lymph # (Auto) 1.8 X10^3/uL (1.3-2.9) 05/29/20 05:10 [place] # (Auto) 0.5 x10^3/uL (0.3-0.8) 05/29/20 05:10 Eos # (Auto) 0.1 x10^3/uL (0.0-0.2) 05/29/20 05:10 Baso # (Auto) 0.1 X10^3/uL (0.0-0.1) 05/29/20 05:10 Absolute Nucleated RBC 0.0 /100WBC 05/29/20 05:10 PT 13.4 SECONDS (11.8-14.3) 05/26/20 04:30 INR Target Range - 05/26/20 04:30 INR 1.05 (0.8-1.3) 05/26/20 04:30 APTT 28.0 SECONDS (22.9-36.5) 05/26/20 04:30 PTT Comment - 05/26/20 04:30 Sodium 131 mmol/L (136-145) L 05/29/20 05:10 Corrected Sodium TNP 05/29/20 05:10 Potassium 3.5 mmol/L (3.5-5.1) 05/29/20 05:10 Chloride 98 mmol/L (98-107) 05/29/20 05:10 Carbon Dioxide 24.1 mmol/L (21-32) 05/29/20 05:10 BUN 7 mg/dL (7-18) 05/29/20 05:10 Creatinine 0.42 mg/dL (0.55-1.02) L 05/29/20 05:10 Est GFR (MDRD) Af Amer > 60 (>60) 05/29/20 05:10 Est GFR (MDRD) Non-Af > 60 (>60) 05/29/20 05:10 Glucose 87 mg/dL (65-99) 05/29/20 05:10 Calcium 8.7 mg/dL (8.5-10.1) 05/29/20 05:10 Corrected Calcium 9.5 mg/dL (8.5-10.1) 05/29/20 05:10 Magnesium 2.1 mg/dL (1.7-2.9) 05/27/20 04:04 Total Bilirubin 0.40 mg/dL (0.2-1.0) 05/29/20 05:10 AST 16 Units/L (15-37) 05/29/20 05:10 ALT 16 Units/L (12-78) 05/29/20 05:10 Alkaline Phosphatase 56 Units/L (46-116) 05/29/20 05:10 Creatine Kinase 111 Units/L (26-192) 05/26/20 04:30 CK-MB (CK-2) 1.6 ng/mL (0-4.0) 05/26/20 04:30 CK/CKMB % Calc 1.4 % (<4) 05/26/20 04:30 Troponin I < 0.02 ng/mL (0-1.5) 05/26/20 04:30 Total Protein 6.4 g/dL (6.4-8.2) 05/29/20 05:10 Albumin 3.0 g/dL (3.4-5.0) L 05/29/20 05:10 Globulin 3.4 g/dL (2.5-4.5) 05/29/20 05:10 Albumin/Globulin Ratio 0.9 Ratio (1.1-2.1) L 05/29/20 05:10 Free T4 1.46 ng/dL (0.76-1.46) 05/26/20 04:30 TSH 3rd Generation 1.783 uIU/mL (0.358-3.74) 05/26/20 04:30 Specimen Type Clean catch urine 05/25/20 21:45 Urine Color Yellow (YELLOW) 05/25/20 21:45 Urine Appearance Clear (CLEAR) 05/25/20 21:45 Urine pH 5.0 (5.0 - 8.0) 05/25/20 21:45 Ur Specific [place] 1.020 (1.000-1.030) 05/25/20 21:45 Urine Protein Negative (NEGATIVE) 05/25/20 21:45 Urine Glucose (UA) Negative (NEGATIVE) 05/25/20 21:45 Urine Ketones 3+ (NEGATIVE) 05/25/20 21:45 Urine Occult Blood 3+ (NEGATIVE) 05/25/20 21:45 Urine Nitrite Negative (NEGATIVE) 05/25/20 21:45 Urine Bilirubin Negative (NEGATIVE) 05/25/20 21:45 Urine Urobilinogen Normal (NORMAL) 05/25/20 21:45 Ur Leukocyte Esterase Negative (NEGATIVE) 05/25/20 21:45 Urine RBC 0-2 /HPF (0-3) 05/25/20 21:45 Urine WBC None seen /HPF (0-5) 05/25/20 21:45 Ur Squamous Epith Cells Rare /HPF (NEGATIVE) 05/25/20 21:45 Urine Bacteria Negative /HPF (NEGATIVE) 05/25/20 21:45 Ur Culture Indicated? No/not indicated 05/25/20 21:45 Ur Random Sodium 160 mmol/L (40-220) 05/28/20 12:00 - Plan (1) Acute hyponatremia Status: Acute Plan: NS AT 50 ML/HR, THE POTASSIUM AND MAGNESIUM PROTOCOLS, LOVENOX 40MG SC DAILY, AND HER HOME MEDICATIONS WERE RESUMED (2) AMS (altered mental status) Status: Acute Qualifiers: Altered mental status type: transient alteration of awareness Qualified Code(s): R40.4 - Transient alteration of awareness (3) Benign hypertension Status: Active
[2020-05-29] MEDS ORDERED: BUTT CREAM (COMPOUND) TOP PRN (15:39)
[2020-05-29] MEDS ORDERED: BUTT CREAM (COMPOUND) ONE (15:42)
[2020-05-29] MEDS: COLACE CAP 100 MG PO SCH (21:10)
[2020-05-29] MEDS: KLONOPIN TAB 0.5 MG PO SCH (21:10)
[2020-05-30 05:55] LABS: BASOPHILS % (AUTO) 0.8 % (0.2-1.0); EOSINOPHILS # (AUTO) 0.1 x10^3/uL (0.0-0.2); EOSINOPHILS % (AUTO) 2.5 % (0.9-2.9); HEMATOCRIT 36.8 % (36.0-47.0); HEMOGLOBIN 12.6 g/dL (12.0-16.0); LYMPHOCYTES # (AUTO) 1.6 X10^3/uL (1.3-2.9); LYMPHOCYTES % (AUTO) 34.2 % (21.0-51.0); MEAN CORPUSCULAR HEMOGLOBIN 32.5 pg (27.0-34.0); MEAN CORPUSCULAR HGB CONC 34.3 g/dL (33.0-35.0); MEAN CORPUSCULAR VOLUME 94.7 fL (80.0-100.0); MEAN PLATELET VOLUME 8.4 fL (7.4-11.0); MONOCYTES # (AUTO) 0.4 x10^3/uL (0.3-0.8); MONOCYTES % (AUTO) 8.9 % (0.0-13.0); NEUTROPHILS # (AUTO) 2.6 x10^3/uL (2.2-4.8); NEUTROPHILS % (AUTO) 53.6 % (42.0-75.0); PLATELET COUNT 216 X10^3/uL (150.0-450.0); RED BLOOD COUNT 3.88 X10^6/uL (3.5-5.4); RED CELL DISTRIBUTION WIDTH 14.5 % (11.6-16.5); WHITE BLOOD COUNT 4.8 X10^3/uL (3.6-10.0)
[2020-05-30 06:19] LABS: ALANINE AMINOTRANSFERASE 15 Units/L (12-78); ALKALINE PHOSPHATASE 54 Units/L (46-116); ASPARTATE AMINO TRANSFERASE 17 Units/L (15-37); BLOOD UREA NITROGEN 9 mg/dL (7-18); CALCIUM 8.7 mg/dL (8.5-10.1); CARBON DIOXIDE 22.8 mmol/L (21-32); CHLORIDE 100 mmol/L (98-107); COR CA(FOR HYPOALB) 9.5 mg/dL (8.5-10.1); CREATININE 0.39 mg/dL (0.55-1.02); SODIUM 133 mmol/L (136-145); TOTAL PROTEIN 6.6 g/dL (6.4-8.2); eGFR NON BLACK RACES > 60 (>60)
[2020-05-30] MEDS: NS 500 ML IV 500 ML IV SCH (07:00)
[2020-05-30 08:26] VITALS: BP 135/70
[2020-05-30] MEDS: ZESTRIL TAB 10 MG PO SCH (08:55)
[2020-05-30] MEDS: TOPROL XL PO SCH (08:56)
[2020-05-30] MEDS: VIBRAMYCIN PO SCH (08:57)
[2020-05-30] MEDS: PEPCID TAB 20 MG PO SCH (08:57)
[2020-05-30] MEDS: CRESTOR TAB 10 MG PO SCH (08:57)
[2020-05-30] MEDS: SINGULAIR TAB 10 MG PO SCH (08:58)
[2020-05-30] MEDS: MEGACE PO SCH (08:58)
[2020-05-30] MEDS: MILK OF MAGNESIA PO SCH (08:59)
[2020-05-30] MEDS: ZyrTEC TAB 10 MG PO SCH (08:59)
[2020-05-30] MEDS: LOVENOX INJ 40 MG SYR SC SCH (09:01)
== END 2020-05-30 12:15 | disposition home or self-care (01) | DRG 641 ==
LOC: ER 16:08 → MED/SURG 19:22
PROVIDERS: ADMIT Internal Medicine; ATTEND Internal Medicine
DX: R82.4 Acetonuria; E87.1 Hypo-osmolality and hyponatremia; I10 Essential (primary) hypertension; E87.6 Hypokalemia; R31.9 Hematuria, unspecified; R40.4 Transient alteration of awareness; R63.0 Anorexia; R94.31 Abnormal electrocardiogram [ECG] [EKG]; F41.8 Other specified anxiety disorders

== ENCOUNTER 2021-11-01 07:14 | Inpatient (IN) ==
[2021-11-01 07:43] VITALS: BMI 24.5
[2021-11-01] MEDS ORDERED: NS 1,000 ML IV 1,000 ML IV ONE (07:44)
[2021-11-01] MEDS ORDERED: ZOFRAN INJ 4 MG VIAL IVP ONE ×2 (07:45→10:51)
--- NOTE | 2021-11-01 07:47 | DR.NAUSEAF ---
HPI Time Seen Time Seen by Provider: 11/01/21 07:43 Primary Care Physician Primary Care Physician: LUKE HPI Comment HPI Comment: Persistent n/v x one week as below; weak and unable to hold anything down for the past several days. Complaints Chief Complaint:: PT HAS BEEN FEELING BAD "ABOUT A WEEK" BUT SX HAVE BEEN MANAGEABLE AT HOME. PT STATES HER SX WORSENED LAST NIGHT; SHE C/O N/V, HEADACHE, "WEAK ON MY STOMACH", "MY HEAD HURTS", "I THINK I'M DEHYDRATED", NOT EATING, NOT DRINKING, "CAN'T HOLD ANYTHING DOWN" COVID-19 Coronavirus risk:travel/contact w/high risk person: No Has patient experienced Coronavirus symptoms: No Source History Provided: Patient and EMS Mode of Arrival Mode of Arrival: Stretcher Timing Onset of Chief Complaint: 10/31/21 PMH PMH Past Medical History: Yes Past Medical History: Anxiety and Hypertension Past Medical History Comment: MVP Past Surgical History: Yes Surgical History: Appendectomy and Hysterectomy Family History History of Family Medical Conditions: Yes Family Medical History: Cancer, Coronary Artery Disease and Hypertension Social History Does any household member use tobacco: No Alcohol Use: None Do you use any recreational Drugs:: No Lives With: Alone Lives Where: Home Travel Risk Coronavirus risk:travel/contact w/high risk person: No Has patient experienced Coronavirus symptoms: No Infectious screening In the last 2 months have you had wt loss of >10#?: NO Have you had fever, night sweats or hemotysis?: No Have you traveled outside the country in the last 6 months?: No Isolation: Standard ROS Review of Systems Eyes: No Symptoms Reported ENTM: No Symptoms Reported Respiratoy: No Symptoms Reported Cardiovascular: No Symptoms Reported Genitourinary: No Symptoms Reported Musculoskeletal: No Symptoms Reported Integumentary: No Symptoms Reported Hematologic/Lymphatic: No Symptoms Reported Endocrine: No Symptoms Reported Psychiatric: No Symptoms Reported PE Vital Signs Vitals: Temperature 98.3 F Pulse Rate 64 Respiratory Rate 20 Blood Pressure [Left Arm] 125/59 Blood Pressure 151/70 O2 Sat by Pulse Oximetry 100 General Limitations: No Limitations General Appearance: Alert and In No Apparent Distress (pale, sickly) Head Head Exam: Normal Inspection Eyes Eye exam: Normal Appearance ENT ENT Exam: Normal Exam Neck Neck Exam: Normal Inspection Chest Chest Inspection: Normal Inspection Respiratory Respiratory Exam: Normal Lung Sounds Bilat Respiratory Exam: Bilateral: Clear to Auscultation Cardiovascular Cardiovascular Exam: Regular Rate and Normal Rhythm Abdominal Exam Abdominal Exam: Normal Inspection, Normal Bowel Sounds and Soft Rectal Rectal Exam: Deferred External Exam: Female: Deferred : Speculum Exam (Female): Deferred : Bimanual Exam (female): Deferred Extremities Extremities Exam: Normal Inspection Back Back Exam: Normal Inspection Neurologic Neurological Exam: Alert and Oriented X3 Psychiatric Psychiatric Exam: Normal Affect and Normal Mood Skin Skin Exam: Warm, Dry, Intact and Pallor ROR Labs Reviewed Laboratory Results Reviewed?: Yes Result Diagrams: 11/07/21 05:36 11/07/21 05:36 Laboratory: WBC 6.1 X10^3/uL (3.6-10.0) 11/01/21 07:50 RBC 4.66 X10^6/uL (3.5-5.4) 11/01/21 07:50 Hgb 14.7 g/dL (12.0-16.0) 11/01/21 07:50 Hct 41.6 % (36.0-47.0) 11/01/21 07:50 MCV 89.3 fL (80.0-100.0) 11/01/21 07:50 MCH 31.6 pg (27.0-34.0) 11/01/21 07:50 MCHC 35.4 g/dL (33.0-35.0) H 11/01/21 07:50 RDW 13.3 % (11.6-16.5) 11/01/21 07:50 Plt Count 219 X10^3/uL (150.0-450.0) 11/01/21 07:50 MPV 8.5 fL (7.4-11.0) 11/01/21 07:50 Neut % (Auto) 62.0 % (42.0-75.0) 11/01/21 07:50 Lymph % (Auto) 27.4 % (21.0-51.0) 11/01/21 07:50 [place] % (Auto) 9.6 % (0.0-13.0) 11/01/21 07:50 Eos % (Auto) 0.6 % (0.9-2.9) L 11/01/21 07:50 Baso % (Auto) 0.4 % (0.2-1.0) 11/01/21 07:50 Neut # (Auto) 3.8 x10^3/uL (2.2-4.8) 11/01/21 07:50 Lymph # (Auto) 1.7 X10^3/uL (1.3-2.9) 11/01/21 07:50 [place] # (Auto) 0.6 x10^3/uL (0.3-0.8) 11/01/21 07:50 Eos # (Auto) 0.0 x10^3/uL (0.0-0.2) 11/01/21 07:50 Baso # (Auto) 0.0 X10^3/uL (0.0-0.1) 11/01/21 07:50 Absolute Nucleated RBC 0.1 /100WBC 11/01/21 07:50 Sodium 125 mmol/L (136-145) L* 11/01/21 07:50 Corrected Sodium TNP 11/01/21 07:50 Potassium 3.2 mmol/L (3.5-5.1) L 11/01/21 07:50 Chloride 91 mmol/L (98-107) L 11/01/21 07:50 Carbon Dioxide 25.0 mmol/L (21-32) 11/01/21 07:50 BUN 6 mg/dL (7-18) L 11/01/21 07:50 Creatinine 0.52 mg/dL (0.55-1.02) L 11/01/21 07:50 Est GFR (MDRD) Af Amer > 60 (>60) 11/01/21 07:50 Est GFR (MDRD) Non-Af > 60 (>60) 11/01/21 07:50 Glucose 105 mg/dL (65-99) H 11/01/21 07:50 Calcium 8.3 mg/dL (8.5-10.1) L 11/01/21 07:50 Corrected Calcium TNP 11/01/21 07:50 Magnesium 1.9 mg/dL (1.7-2.9) 11/01/21 07:50 Total Bilirubin 0.90 mg/dL (0.2-1.0) 11/01/21 07:50 AST 17 Units/L (15-37) 11/01/21 07:50 ALT 16 Units/L (12-78) 11/01/21 07:50 Alkaline Phosphatase 78 Units/L (46-116) 11/01/21 07:50 Total Protein 7.1 g/dL (6.4-8.2) 11/01/21 07:50 Albumin 3.7 g/dL (3.4-5.0) 11/01/21 07:50 Globulin 3.4 g/dL (2.5-4.5) 11/01/21 07:50 Albumin/Globulin Ratio 1.1 Ratio (1.1-2.1) 11/01/21 07:50 Lipase 77 Units/L (73-393) 11/01/21 07:50 Specimen Type Clean catch urine 11/01/21 09:20 Urine Color Pale yellow (YELLOW) 11/01/21 09:20 Urine Appearance Cloudy (CLEAR) 11/01/21 09:20 Urine pH 8.0 (5.0 - 8.0) 11/01/21 09:20 Ur Specific [place] 1.015 (1.000-1.030) 11/01/21 09:20 Urine Protein Negative (NEGATIVE) 11/01/21 09:20 Urine Glucose (UA) Negative (NEGATIVE) 11/01/21 09:20 Urine Ketones 2+ (NEGATIVE) 11/01/21 09:20 Urine Occult Blood 3+ (NEGATIVE) 11/01/21 09:20 Urine Nitrite Negative (NEGATIVE) 11/01/21 09:20 Urine Bilirubin Negative (NEGATIVE) 11/01/21 09:20 Urine Urobilinogen Normal (NORMAL) 11/01/21 09:20 Ur Leukocyte Esterase 1+ (NEGATIVE) 11/01/21 09:20 Urine RBC 3-5 /HPF (0-3) A 11/01/21 09:20 Urine WBC 0-2 /HPF (0-5) 11/01/21 09:20 Ur Squamous Epith Cells Few /HPF (NEGATIVE) 11/01/21 09:20 Amorphous Sediment 1+ /HPF (NEGATIVE) 11/01/21 09:20 Urine Bacteria Trace /HPF (NEGATIVE) 11/01/21 09:20 Ur Culture Indicated? 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 Opioid Opioid Risk Tool Age (Cj box if 16-45): No History of Preadolescent Sexual Abuse: No Total: 0 Total Score Risk Category: Low Risk Copyright: [place] predicting aberrant behaviors Diagnosis Discharge Problem: Acute hypokalemia, Acute hyponatremia, Dehydration, Acute UTI (urinary tract infection) Instructions Instructions: Hypokalemia Budget-Friendly Healthy Eating Healthy Eating Gastritis, Adult, [id number] Health Maintenance After Age 65 Constipation, Adult, [id number] Hyponatremia, [id number] Managing Your Hypertension Forms: Precautions for COVID19 [facility] Patient Portal Social Distancing
[2021-11-01] MEDS ORDERED: ZOFRAN INJ 4 MG VIAL ONE ×2 (07:54→10:53)
--- NOTE | 2021-11-01 08:09 | RAD ---
HISTORYNausea, vomitingSTUDYAcute abdominal seriesCOMPARISONNoneFINDINGSThe heart is enlarged. No congestive heart failure is noted. The priyanka are normal. The lung fisher are clear. The abdominal gas pattern is nonspecific and nonobstructive. No abnormal masses or abnormal calcifications are identified. No pneumoperitoneum is identified. Regional skeleton is intact. Degenerative joint disease is present in the hip joints bilaterally. There are 2 radiopaque foreign bodies overlying the mid abdomen. These could be extrinsic to the patient or within bowel.IMPRESSIONCardiomegaly without congestive heart failure, lungs clearNonspecific nonobstructive bowel gas patternDegenerative joint disease in the hip joints bilaterally.Electronically signed by: DEVON SARMIENTO (Nov 01, 2021 08:07:53)
[2021-11-01 08:13] LABS: BASOPHILS % (AUTO) 0.4 % (0.2-1.0); EOSINOPHILS % (AUTO) 0.6 % (0.9-2.9); HEMATOCRIT 41.6 % (36.0-47.0); HEMOGLOBIN 14.7 g/dL (12.0-16.0); LYMPHOCYTES # (AUTO) 1.7 X10^3/uL (1.3-2.9); LYMPHOCYTES % (AUTO) 27.4 % (21.0-51.0); MEAN CORPUSCULAR HEMOGLOBIN 31.6 pg (27.0-34.0); MEAN CORPUSCULAR HGB CONC 35.4 g/dL (33.0-35.0); MEAN CORPUSCULAR VOLUME 89.3 fL (80.0-100.0); MEAN PLATELET VOLUME 8.5 fL (7.4-11.0); MONOCYTES # (AUTO) 0.6 x10^3/uL (0.3-0.8); MONOCYTES % (AUTO) 9.6 % (0.0-13.0); NEUTROPHILS # (AUTO) 3.8 x10^3/uL (2.2-4.8); RED BLOOD COUNT 4.66 X10^6/uL (3.5-5.4); RED CELL DISTRIBUTION WIDTH 13.3 % (11.6-16.5); WHITE BLOOD COUNT 6.1 X10^3/uL (3.6-10.0)
[2021-11-01 08:23] LABS: ALANINE AMINOTRANSFERASE 16 Units/L (12-78); ALBUMIN 3.7 g/dL (3.4-5.0); ALKALINE PHOSPHATASE 78 Units/L (46-116); ASPARTATE AMINO TRANSFERASE 17 Units/L (15-37); BLOOD UREA NITROGEN 6 mg/dL (7-18); CALCIUM 8.3 mg/dL (8.5-10.1); CHLORIDE 91 mmol/L (98-107); CREATININE 0.52 mg/dL (0.55-1.02); LIPASE 77 Units/L (73-393); MAGNESIUM 1.9 mg/dL (1.7-2.9); TOTAL PROTEIN 7.1 g/dL (6.4-8.2); eGFR NON BLACK RACES > 60 (>60)
[2021-11-01 08:27] LABS: SODIUM 125 mmol/L (136-145)
--- NOTE | 2021-11-01 08:57 | DR.NAUSEAF ---
HPI Time Seen Time Seen by Provider: 11/01/21 07:43 Primary Care Physician Primary Care Physician: LUKE Complaints Chief Complaint Doctors Comments: NAUSEA AND VOMITING FOR ONE WEEK. SYMPTOMS INCREASED LAST NIGHT AND SHE DEVELOPED HEADACHE . Chief Complaint:: PT HAS BEEN FEELING BAD "ABOUT A WEEK" BUT SX HAVE BEEN MANAGEABLE AT HOME. PT STATES HER SX WORSENED LAST NIGHT; SHE C/O N/V, HEADACHE, "WEAK ON MY STOMACH", "MY HEAD HURTS", "I THINK I'M DEHYDRATED", NOT EATING, NOT DRINKING, "CAN'T HOLD ANYTHING DOWN" COVID-19 Coronavirus risk:travel/contact w/high risk person: No Has patient experienced Coronavirus symptoms: No Source History Provided: Patient and EMS Mode of Arrival Mode of Arrival: Stretcher Timing Onset of Chief Complaint: 10/31/21 PMH PMH Past Medical History: Yes Past Medical History: Anxiety and Hypertension Past Medical History Comment: MVP Past Surgical History: Yes Surgical History: Appendectomy and Hysterectomy Family History History of Family Medical Conditions: Yes Family Medical History: Cancer, Coronary Artery Disease and Hypertension Social History Does any household member use tobacco: No Alcohol Use: None Do you use any recreational Drugs:: No Lives With: Alone Lives Where: Home Travel Risk Coronavirus risk:travel/contact w/high risk person: No Has patient experienced Coronavirus symptoms: No Infectious screening In the last 2 months have you had wt loss of >10#?: NO Have you had fever, night sweats or hemotysis?: No Have you traveled outside the country in the last 6 months?: No Isolation: Standard ROS Review of Systems Constitutional: Weakness, Fatigue and Loss of Appetite Eyes: No Symptoms Reported ENTM: No Symptoms Reported Respiratoy: No Symptoms Reported Cardiovascular: No Symptoms Reported Gastrointestinal/Abdominal: Abdominal Pain, Nausea and Vomiting Genitourinary: No Symptoms Reported Neurological: No Symptoms Reported Musculoskeletal: No Symptoms Reported Integumentary: No Symptoms Reported Hematologic/Lymphatic: No Symptoms Reported Endocrine: No Symptoms Reported Psychiatric: No Symptoms Reported All Other Systems: Reviewed and Negative PE Vital Signs Vitals: Temperature 98.3 F Pulse Rate 64 Respiratory Rate 20 Blood Pressure [Left Arm] 125/59 Blood Pressure 151/70 O2 Sat by Pulse Oximetry 100 General General Appearance: Alert and Lethargic Head Head Exam: Normal Inspection Eyes Eye exam: Normal Appearance ENT ENT Exam: Normal Exam Neck Neck Exam: Normal Inspection Chest Chest Inspection: Normal Inspection Respiratory Respiratory Exam: Normal Lung Sounds Bilat Respiratory Exam: Bilateral: Clear to Auscultation Cardiovascular Cardiovascular Exam: Regular Rate and Normal Rhythm Abdominal Exam Abdominal Exam: Normal Inspection, Soft and Hyperactive Bowel Sounds Rectal Rectal Exam: Deferred External Exam: Female: Deferred : Speculum Exam (Female): Deferred : Bimanual Exam (female): Deferred Extremities Extremities Exam: Normal Inspection Back Back Exam: Normal Inspection Neurologic Neurological Exam: Alert and Oriented X3 Psychiatric Psychiatric Exam: Normal Affect and Normal Mood Skin Skin Exam: Warm, Dry, Intact and Normal Color MDM Additional Information Obtained Additional Findings:: GASTROENTERITIS,VIRAL SYNDROME Differential Diagnosis Differential Diagnosis: Considerations may Include:: Gastroenteritis, Urinary Tract Infection and Other (DEHYDRATION,COVID) COURSE Treatment Treatment: PATIENT WAS GIVEN A TOTAL OF 2L NACL IN THE ER AND POTASSIUM 40MEQ. CALLED PCP,DR BUTLER AND HE WILL ACCEPT THE PATIENT FOR TREATMENT OF DE HYDRATION,HYPONATREMIA,HYPOKALEMIA AND UTI. THE PATIENT IS AWARE OF THE PLAN AND IS AGGREABLE TO THE ADMISSION. THIS PATIENT WAS GIVEN A TOTAL OF 8MG ZOFRAN IV FOR NAUSEA. ROR Labs Reviewed Laboratory Results Reviewed?: Yes (SODIUM IS 125 AND POTASSIUM IS 3.2. ) Result Diagrams: 11/01/21 07:50 11/01/21 07:50 Laboratory: WBC 6.1 X10^3/uL (3.6-10.0) 11/01/21 07:50 RBC 4.66 X10^6/uL (3.5-5.4) 11/01/21 07:50 Hgb 14.7 g/dL (12.0-16.0) 11/01/21 07:50 Hct 41.6 % (36.0-47.0) 11/01/21 07:50 MCV 89.3 fL (80.0-100.0) 11/01/21 07:50 MCH 31.6 pg (27.0-34.0) 11/01/21 07:50 MCHC 35.4 g/dL (33.0-35.0) H 11/01/21 07:50 RDW 13.3 % (11.6-16.5) 11/01/21 07:50 Plt Count 219 X10^3/uL (150.0-450.0) 11/01/21 07:50 MPV 8.5 fL (7.4-11.0) 11/01/21 07:50 Neut % (Auto) 62.0 % (42.0-75.0) 11/01/21 07:50 Lymph % (Auto) 27.4 % (21.0-51.0) 11/01/21 07:50 [place] % (Auto) 9.6 % (0.0-13.0) 11/01/21 07:50 Eos % (Auto) 0.6 % (0.9-2.9) L 11/01/21 07:50 Baso % (Auto) 0.4 % (0.2-1.0) 11/01/21 07:50 Neut # (Auto) 3.8 x10^3/uL (2.2-4.8) 11/01/21 07:50 Lymph # (Auto) 1.7 X10^3/uL (1.3-2.9) 11/01/21 07:50 [place] # (Auto) 0.6 x10^3/uL (0.3-0.8) 11/01/21 07:50 Eos # (Auto) 0.0 x10^3/uL (0.0-0.2) 11/01/21 07:50 Baso # (Auto) 0.0 X10^3/uL (0.0-0.1) 11/01/21 07:50 Absolute Nucleated RBC 0.1 /100WBC 11/01/21 07:50 Sodium 125 mmol/L (136-145) L* 11/01/21 07:50 Corrected Sodium TNP 11/01/21 07:50 Potassium 3.2 mmol/L (3.5-5.1) L 11/01/21 07:50 Chloride 91 mmol/L (98-107) L 11/01/21 07:50 Carbon Dioxide 25.0 mmol/L (21-32) 11/01/21 07:50 BUN 6 mg/dL (7-18) L 11/01/21 07:50 Creatinine 0.52 mg/dL (0.55-1.02) L 11/01/21 07:50 Est GFR (MDRD) Af Amer > 60 (>60) 11/01/21 07:50 Est GFR (MDRD) Non-Af > 60 (>60) 11/01/21 07:50 Glucose 105 mg/dL (65-99) H 11/01/21 07:50 Calcium 8.3 mg/dL (8.5-10.1) L 11/01/21 07:50 Corrected Calcium TNP 11/01/21 07:50 Magnesium 1.9 mg/dL (1.7-2.9) 11/01/21 07:50 Total Bilirubin 0.90 mg/dL (0.2-1.0) 11/01/21 07:50 AST 17 Units/L (15-37) 11/01/21 07:50 ALT 16 Units/L (12-78) 11/01/21 07:50 Alkaline Phosphatase 78 Units/L (46-116) 11/01/21 07:50 Total Protein 7.1 g/dL (6.4-8.2) 11/01/21 07:50 Albumin 3.7 g/dL (3.4-5.0) 11/01/21 07:50 Globulin 3.4 g/dL (2.5-4.5) 11/01/21 07:50 Albumin/Globulin Ratio 1.1 Ratio (1.1-2.1) 11/01/21 07:50 Lipase 77 Units/L (73-393) 11/01/21 07:50 Specimen Type Clean catch urine 11/01/21 09:20 Urine Color Pale yellow (YELLOW) 11/01/21 09:20 Urine Appearance Cloudy (CLEAR) 11/01/21 09:20 Urine pH 8.0 (5.0 - 8.0) 11/01/21 09:20 Ur Specific [place] 1.015 (1.000-1.030) 11/01/21 09:20 Urine Protein Negative (NEGATIVE) 11/01/21 09:20 Urine Glucose (UA) Negative (NEGATIVE) 11/01/21 09:20 Urine Ketones 2+ (NEGATIVE) 11/01/21 09:20 Urine Occult Blood 3+ (NEGATIVE) 11/01/21 09:20 Urine Nitrite Negative (NEGATIVE) 11/01/21 09:20 Urine Bilirubin Negative (NEGATIVE) 11/01/21 09:20 Urine Urobilinogen Normal (NORMAL) 11/01/21 09:20 Ur Leukocyte Esterase 1+ (NEGATIVE) 11/01/21 09:20 Urine RBC 3-5 /HPF (0-3) A 11/01/21 09:20 Urine WBC 0-2 /HPF (0-5) 11/01/21 09:20 Ur Squamous Epith Cells Few /HPF (NEGATIVE) 11/01/21 09:20 Amorphous Sediment 1+ /HPF (NEGATIVE) 11/01/21 09:20 Urine Bacteria Trace /HPF (NEGATIVE) 11/01/21 09:20 Ur Culture Indicated? No/not indicated 11/01/21 09:20 SARS CoV-2 RNA Rapid JANELL Negative (NEGATIVE) 11/01/21 07:50 XRAY XRAY Interpreted by: Radiologist (ABDOMINAL SERIES, CHEST XRAY CLEAR, ABDOMEN NON SPECIFIC GAS PATTERN,DJD BILATERAL HIPS) Opioid Opioid Risk Tool Age (Cj box if 16-45): No History of Preadolescent Sexual Abuse: No Total: 0 Total Score Risk Category: Low Risk Copyright: Shaan CORREA predicting aberrant behaviors Diagnosis Discharge Problem: Acute hypokalemia, Acute hyponatremia, Dehydration, Acute UTI (urinary tract infection) Instructions Forms: Precautions for COVID19 [facility] Patient Portal Social Distancing
[2021-11-01] MEDS ORDERED: NS 1,000 ML IV 1,000 ML ONE (09:07)
[2021-11-01 09:32] LABS: BILIRUBIN,URINE NEGATIVE (NEGATIVE); BLOOD/HEMOGLOBIN,URINE 3+ (NEGATIVE); GLUCOSE, URINE NEGATIVE (NEGATIVE); KETONES,URINE 2+ (NEGATIVE); LEUKOCYTE ESTERASE ,URINE 1+ (NEGATIVE); NITRITES,URINE NEGATIVE (NEGATIVE); PROTEIN,URINE NEGATIVE (NEGATIVE); UROBILINOGEN,URINE NORMAL (NORMAL)
[2021-11-01 09:50] LABS: APPEARANCE,URINE CLOUDY (CLEAR); BACTERIA,URINE TRACE /HPF (NEGATIVE); COLOR,URINE PALE YELLOW (YELLOW); SQUAMOUS EPITHELIAL CELL,UR FEW /HPF (NEGATIVE)
[2021-11-01] MEDS ORDERED: MICRO K EXTEN CAP 10 MEQ PO ONE ×2 (10:44→10:46)
[2021-11-01] MEDS: ZOFRAN INJ 4 MG VIAL IVP PRN ×2 (14:03→21:55)
[2021-11-01] MEDS: NS 1,000 ML IV 1,000 ML with POTASSIUM CHLORIDE INJ 10 MEQ VIAL 10 MEQ IV SCH ×4 (14:03→22:04)
[2021-11-01] MEDS ORDERED: VITAMIN D (1.25MG) PO SCH (14:11)
[2021-11-01] MEDS: DESYREL PO SCH ×2 (20:37→21:57)
[2021-11-01] MEDS: PEPCID TAB 20 MG PO SCH (20:38)
[2021-11-01] MEDS: MEGACE PO SCH ×2 (20:39→21:56)
[2021-11-01] MEDS ORDERED: TYLENOL 325 MG TAB PO PRN (23:05)
[2021-11-02] MEDS: PHENERGAN INJ 25 MG IM PRN ×4 (04:58→23:41)
[2021-11-02 05:17] LABS: BASOPHILS % (AUTO) 0.7 % (0.2-1.0); EOSINOPHILS # (AUTO) 0.1 x10^3/uL (0.0-0.2); EOSINOPHILS % (AUTO) 1.3 % (0.9-2.9); HEMATOCRIT 37.7 % (36.0-47.0); HEMOGLOBIN 12.9 g/dL (12.0-16.0); LYMPHOCYTES # (AUTO) 1.7 X10^3/uL (1.3-2.9); MEAN CORPUSCULAR HEMOGLOBIN 31.4 pg (27.0-34.0); MEAN CORPUSCULAR HGB CONC 34.3 g/dL (33.0-35.0); MEAN CORPUSCULAR VOLUME 91.5 fL (80.0-100.0); MONOCYTES # (AUTO) 0.5 x10^3/uL (0.3-0.8); MONOCYTES % (AUTO) 9.9 % (0.0-13.0); NEUTROPHILS # (AUTO) 2.8 x10^3/uL (2.2-4.8); NEUTROPHILS % (AUTO) 55.1 % (42.0-75.0); RED BLOOD COUNT 4.12 X10^6/uL (3.5-5.4); RED CELL DISTRIBUTION WIDTH 13.3 % (11.6-16.5); WHITE BLOOD COUNT 5.1 X10^3/uL (3.6-10.0)
[2021-11-02 05:33] LABS: ALANINE AMINOTRANSFERASE 11 Units/L (12-78); ALKALINE PHOSPHATASE 60 Units/L (46-116); ASPARTATE AMINO TRANSFERASE 14 Units/L (15-37); BLOOD UREA NITROGEN 5 mg/dL (7-18); CALCIUM 7.4 mg/dL (8.5-10.1); CHLORIDE 101 mmol/L (98-107); COR CA(FOR HYPOALB) 8.2 mg/dL (8.5-10.1); CREATININE 0.41 mg/dL (0.55-1.02); SODIUM 131 mmol/L (136-145); TOTAL PROTEIN 5.8 g/dL (6.4-8.2); eGFR NON BLACK RACES > 60 (>60)
[2021-11-02] MEDS: NS 1,000 ML IV 1,000 ML with POTASSIUM CHLORIDE INJ 10 MEQ VIAL 10 MEQ IV SCH ×8 (07:11→19:30)
[2021-11-02] MEDS ORDERED: NS 100 ML IV 100 ML ONE (08:26)
[2021-11-02] MEDS: CRESTOR TAB 10 MG PO SCH ×2 (08:32→08:45)
[2021-11-02] MEDS: ROCEPHIN VIAL 1 GRAM IV SCH (08:34)
[2021-11-02] MEDS: PEPCID TAB 20 MG PO SCH ×2 (08:34→21:18)
[2021-11-02] MEDS: SINGULAIR TAB 10 MG PO SCH (08:35)
[2021-11-02] MEDS: ZESTRIL TAB 10 MG PO SCH ×2 (08:35→08:46)
[2021-11-02] MEDS: TOPROL XL PO SCH (08:35)
[2021-11-02] MEDS: ZyrTEC TAB 10 MG PO SCH (08:36)
[2021-11-02] MEDS: MEGACE PO SCH ×3 (08:45→21:18)
[2021-11-02] MEDS ORDERED: PATIENT'S HOME MEDICATION (Levocetirizine 5 mg tablet) PO SCH (09:00)
--- NOTE | 2021-11-02 10:12 | DR.H&P ---
H&P - History & Physical for Day of: H&P Date: 11/01/21 - Chief Complaint Chief Complaint: weakness, dehydration, n/v - History of Present Illness History of Present Illness: PT IS 71 WF ER ADMISSION WITH [facility] BEEN FEELING BAD "ABOUT A WEEK" BUT SX HAVE BEEN MANAGEABLE AT HOME. PT STATES HER SX WORSENED LAST NIGHT; SHE C/O N/V, HEADACHE, "WEAK ON MY STOMACH", "MY HEAD HURTS", "I THINK I'M DEHYDRATED", NOT EATING, NOT DRINKING, "CAN'T HOLD ANYTHING DOWN. PT HAS PMH OF HTN, JU, MDD, OA. PT ADMITTED FOR TREATMENT AND EVALUATION OF ACUTE ILLNESS - Past Medical History Past Medical History: Hypertension, Anxiety - Past Surgical History Surgical History: Appendectomy, Tonsillectomy - Family History Family Medical History: [place], Hypertension - Social History Does patient currently use any type of tobacco product: No Have you used tobacco products in the last 12 months: No Type of Tobacco Use: None Does any household member use tobacco: No Alcohol Use: None Drug Use: None - Medications Home Medications: Penicillins Adverse Reaction (Verified 06/25/20 14:05) pseudoephedrine Adverse Reaction (Verified 06/25/20 14:05) Sulfa (Sulfonamide Antibiotics) [SULFA] Adverse Reaction (Verified 06/25/20 14:05) triprolidine Adverse Reaction (Verified 06/25/20 14:05) - Review of Systems Constitutional: Weakness, Malaise Eyes: No Symptoms Reported ENT: No Symptoms Reported Respiratory: No Symptoms Reported Cardiovascular: No Symptoms Reported Gastrointestinal: Nausea, Vomiting Genitourinary: No Symptoms Reported Musculoskeletal: Back Pain Skin: No Symptoms Reported Neurological: Weakness - Physical Exam Vital Signs: Temperature 98.0 F Pulse Rate [Left Brachial] 94 Pulse Rate 64 Respiratory Rate 20 Blood Pressure [Left Arm] 152/70 Blood Pressure 161/80 O2 Sat by Pulse Oximetry 99 Oriented: Normal Eyes: Normal Ear: Normal Nose: Normal Throat: Dry Respiratory: RLL Diminished, LLL Diminished Cardiovascular: Normal : Normal Auscultation: Bowel Sounds: Normal Palpation: Normal Tenderness: Epigastric (MILD) Skin: Decreased Turgur Musculoskeletal: Back:Lumbar, Instability (GAIT SLOW AND CAUTIOUS) Psychiatric: Anxiety Mood Description: Depressed Affect: Depressed Speech Pattern: Clear, Appropriate - Assessment/Plan (1) Acute hyponatremia Status: Acute Plan: ADMIT GENTLE IV HYDRATION, IV ATBX. BP CONTROL, ADMISSION LABS. ABD XRAY IN ER, URINE CULTURE. VERIFY HOME MEDICATION. NAUSEA CONTROL, COVID SWAB ON ADMISSION (2) Acute UTI (urinary tract infection) Status: Acute (3) JU (generalized anxiety disorder) Status: Acute (4) Benign hypertension Status: Active (5) Hypokalemia Status: Acute (6) Dehydration Status: Acute - Allergies Allergies/Adverse Reactions: Allergies Allergy/AdvReac Type Severity Reaction Status Date / Time Penicillins AdvReac Verified 06/25/20 14:05 pseudoephedrine AdvReac Verified 06/25/20 14:05 Sulfa (Sulfonamide AdvReac Verified 06/25/20 14:05 Antibiotics) [SULFA] triprolidine AdvReac Verified 06/25/20 14:05
[2021-11-02] MEDS: PROTONIX INJ 40 MG VIAL IVP SCH ×2 (14:07→20:45)
--- NOTE | 2021-11-02 15:31 | RAD ---
HISTORYweakness HX: HTN, Mitral valvle prolapse.br Hysterectomy, appendectomy, tonsillectomySTUDYCHEST, 1 VIEWCOMPARISONChest x-ray dated May 25, 2020.FINDINGSThe trachea is midline. The cardiac silhouette is unchanged. Chronic emphysematous and interstitial lung changes the lungs are clear without focal infiltrate, pneumothorax, or effusion. The bony thorax is unremarkable.IMPRESSIONNo acute cardiopulmonary findings .Electronically signed by: ARI LEWIS (Nov 02, 2021 15:30:25)
[2021-11-02] MEDS: DESYREL PO SCH (21:17)
[2021-11-03] MEDS: ZOFRAN INJ 4 MG VIAL IVP PRN (05:10)
[2021-11-03 05:29] LABS: BASOPHILS % (AUTO) 0.6 % (0.2-1.0); EOSINOPHILS # (AUTO) 0.1 x10^3/uL (0.0-0.2); EOSINOPHILS % (AUTO) 2.5 % (0.9-2.9); HEMATOCRIT 37.4 % (36.0-47.0); HEMOGLOBIN 12.9 g/dL (12.0-16.0); LYMPHOCYTES # (AUTO) 1.1 X10^3/uL (1.3-2.9); LYMPHOCYTES % (AUTO) 21.2 % (21.0-51.0); MEAN CORPUSCULAR HEMOGLOBIN 31.3 pg (27.0-34.0); MEAN CORPUSCULAR HGB CONC 34.5 g/dL (33.0-35.0); MEAN CORPUSCULAR VOLUME 90.7 fL (80.0-100.0); MEAN PLATELET VOLUME 8.7 fL (7.4-11.0); MONOCYTES # (AUTO) 0.5 x10^3/uL (0.3-0.8); MONOCYTES % (AUTO) 9.4 % (0.0-13.0); NEUTROPHILS # (AUTO) 3.6 x10^3/uL (2.2-4.8); NEUTROPHILS % (AUTO) 66.3 % (42.0-75.0); RED BLOOD COUNT 4.12 X10^6/uL (3.5-5.4); RED CELL DISTRIBUTION WIDTH 13.5 % (11.6-16.5); WHITE BLOOD COUNT 5.4 X10^3/uL (3.6-10.0)
[2021-11-03 05:50] LABS: ALANINE AMINOTRANSFERASE 12 Units/L (12-78); ALKALINE PHOSPHATASE 61 Units/L (46-116); ASPARTATE AMINO TRANSFERASE 16 Units/L (15-37); BLOOD UREA NITROGEN 4 mg/dL (7-18); CALCIUM 7.8 mg/dL (8.5-10.1); CARBON DIOXIDE 25.7 mmol/L (21-32); CHLORIDE 100 mmol/L (98-107); COR CA(FOR HYPOALB) 8.6 mg/dL (8.5-10.1); CREATININE 0.41 mg/dL (0.55-1.02); SODIUM 134 mmol/L (136-145); eGFR NON BLACK RACES > 60 (>60)
[2021-11-03] MEDS: NS 1,000 ML IV 1,000 ML with POTASSIUM CHLORIDE INJ 10 MEQ VIAL 10 MEQ IV SCH ×6 (07:32→16:27)
[2021-11-03] MEDS ORDERED: NS 100 ML IV 100 ML ONE (08:21)
[2021-11-03] MEDS: MEGACE PO SCH ×2 (08:30→22:09)
[2021-11-03] MEDS: CRESTOR TAB 10 MG PO SCH (08:30)
[2021-11-03] MEDS: PROTONIX INJ 40 MG VIAL IVP SCH ×2 (08:30→22:10)
[2021-11-03] MEDS: PEPCID TAB 20 MG PO SCH ×2 (08:30→22:10)
[2021-11-03] MEDS: ZESTRIL TAB 10 MG PO SCH (08:31)
[2021-11-03] MEDS: SINGULAIR TAB 10 MG PO SCH (08:31)
[2021-11-03] MEDS: ROCEPHIN VIAL 1 GRAM IV SCH (08:31)
[2021-11-03] MEDS: TOPROL XL PO SCH (08:31)
[2021-11-03] MEDS: ZyrTEC TAB 10 MG PO SCH (08:31)
[2021-11-03] MEDS: PHENERGAN INJ 25 MG IM PRN (08:48)
--- NOTE | 2021-11-03 18:13 | CT ---
HISTORYWeakness and abdominal painSTUDYABDOMEN/PELVIS W/O CONCOMPARISONNoneTECHNIQUENon-contrasted axial CT images of the abdomen and pelvis were obtained and reformatted into coronal and sagittal planes for further evaluation. Enteric contrast was administered.Radiation dose: 459.30 mGy-cm total DLPFINDINGSLung bases are clear.Stomach appears normal.Solid visceral organs of the upper abdomen are unremarkable.Gallbladder appears normal.No intra or extrahepatic biliary dilatation.Unremarkable appearance of the kidneys.No hydronephrosis, hydroureter or ureteral calculus.Unremarkable appearance of the urinary bladder.Colonic diverticulosis without diverticulitis.Otherwise, unremarkable appearance of the large and small bowel.Status post hysterectomy.Status post appendectomy.No pneumoperitoneum.No significant fluid collection.No adenopathy.No acute osseous abnormality.Mild multilevel degenerative disc disease without vertebral body height loss.IMPRESSION1. No acute intra-abdominal abnormality detected.2. Colonic diverticulosis without diverticulitis.Electronically signed by: Fady Altman (Nov 03, 2021 18:12:19)
[2021-11-03] MEDS: DESYREL PO SCH (22:09)
[2021-11-04] MEDS: NS 1,000 ML IV 1,000 ML with POTASSIUM CHLORIDE INJ 10 MEQ VIAL 10 MEQ IV SCH ×4 (00:30→08:45)
[2021-11-04] MEDS: ZOFRAN INJ 4 MG VIAL IVP PRN ×2 (02:30→15:59)
[2021-11-04] MEDS: PHENERGAN INJ 25 MG IM PRN (04:30)
[2021-11-04 06:02] LABS: BASOPHILS % (AUTO) 0.5 % (0.2-1.0); EOSINOPHILS # (AUTO) 0.1 x10^3/uL (0.0-0.2); EOSINOPHILS % (AUTO) 1.8 % (0.9-2.9); HEMATOCRIT 37.6 % (36.0-47.0); LYMPHOCYTES # (AUTO) 1.1 X10^3/uL (1.3-2.9); LYMPHOCYTES % (AUTO) 14.6 % (21.0-51.0); MEAN CORPUSCULAR HEMOGLOBIN 31.2 pg (27.0-34.0); MEAN CORPUSCULAR HGB CONC 34.7 g/dL (33.0-35.0); MEAN CORPUSCULAR VOLUME 90.1 fL (80.0-100.0); MEAN PLATELET VOLUME 8.7 fL (7.4-11.0); MONOCYTES # (AUTO) 0.6 x10^3/uL (0.3-0.8); NEUTROPHILS # (AUTO) 5.5 x10^3/uL (2.2-4.8); NEUTROPHILS % (AUTO) 75.1 % (42.0-75.0); RED BLOOD COUNT 4.17 X10^6/uL (3.5-5.4); RED CELL DISTRIBUTION WIDTH 13.4 % (11.6-16.5); WHITE BLOOD COUNT 7.4 X10^3/uL (3.6-10.0)
[2021-11-04 06:17] LABS: ALANINE AMINOTRANSFERASE 13 Units/L (12-78); ALBUMIN 3.3 g/dL (3.4-5.0); ALKALINE PHOSPHATASE 67 Units/L (46-116); ASPARTATE AMINO TRANSFERASE 16 Units/L (15-37); BLOOD UREA NITROGEN 4 mg/dL (7-18); CALCIUM 7.9 mg/dL (8.5-10.1); CHLORIDE 96 mmol/L (98-107); COR CA(FOR HYPOALB) 8.5 mg/dL (8.5-10.1); CREATININE 0.44 mg/dL (0.55-1.02); SODIUM 130 mmol/L (136-145); TOTAL PROTEIN 6.4 g/dL (6.4-8.2); eGFR NON BLACK RACES > 60 (>60)
[2021-11-04] MEDS ORDERED: NS 100 ML IV 100 ML ONE (08:35)
[2021-11-04] MEDS: PROTONIX INJ 40 MG VIAL IVP SCH ×2 (08:52→21:00)
[2021-11-04] MEDS: TOPROL XL PO SCH (08:53)
[2021-11-04] MEDS: PEPCID TAB 20 MG PO SCH ×2 (08:53→21:01)
[2021-11-04] MEDS: MEGACE PO SCH ×2 (08:53→21:00)
[2021-11-04] MEDS: SINGULAIR TAB 10 MG PO SCH (08:54)
[2021-11-04] MEDS: ROCEPHIN VIAL 1 GRAM IV SCH (08:54)
[2021-11-04] MEDS: CRESTOR TAB 10 MG PO SCH (08:54)
[2021-11-04] MEDS: ZyrTEC TAB 10 MG PO SCH (08:54)
[2021-11-04] MEDS: ZESTRIL TAB 10 MG PO SCH (08:54)
[2021-11-04] MEDS: NS + KCL 20 MEQ/L 1,000 ML IV SCH ×2 (10:57→21:01)
[2021-11-04] MEDS: PYRIDIUM PO SCH ×2 (13:26→17:54)
--- NOTE | 2021-11-04 14:23 | RAD ---
HISTORYABDOMINAL PAIN Relevant Clinical InformationSTUDYKUBCOMPARISONScout from CT dated 11/03/2021FINDINGSLung bases are clear. The oral contrast is seen at the level of the right colon and transverse colon, there is soft tissue density in the lower pelvis probably distended bladder. No abnormal intra-abdominal calcifications. There are no abnormal dilated small bowel loops. Osseus structures are unremarkableIMPRESSIONInterval progression of the oral contrast now seen in the mid transverse colo, n no abnormal dilated small bowel loops.Increase density in the lower pelvis likely distended urinary bladder seen on prior CT.Electronically signed by: Helen Garrido (Nov 04, 2021 14:21:12)
[2021-11-04] MEDS: DESYREL PO SCH (21:01)
[2021-11-05] MEDS: NS + KCL 20 MEQ/L 1,000 ML IV SCH ×2 (01:21→10:38)
[2021-11-05] MEDS: PHENERGAN INJ 25 MG IM PRN (04:02)
[2021-11-05 05:21] LABS: BASOPHILS % (AUTO) 0.4 % (0.2-1.0); EOSINOPHILS # (AUTO) 0.3 x10^3/uL (0.0-0.2); EOSINOPHILS % (AUTO) 4.7 % (0.9-2.9); HEMATOCRIT 37.4 % (36.0-47.0); HEMOGLOBIN 12.8 g/dL (12.0-16.0); LYMPHOCYTES # (AUTO) 1.2 X10^3/uL (1.3-2.9); LYMPHOCYTES % (AUTO) 20.3 % (21.0-51.0); MEAN CORPUSCULAR HEMOGLOBIN 31.3 pg (27.0-34.0); MEAN CORPUSCULAR HGB CONC 34.4 g/dL (33.0-35.0); MEAN CORPUSCULAR VOLUME 91.2 fL (80.0-100.0); MEAN PLATELET VOLUME 8.3 fL (7.4-11.0); MONOCYTES # (AUTO) 0.6 x10^3/uL (0.3-0.8); MONOCYTES % (AUTO) 10.2 % (0.0-13.0); NEUTROPHILS # (AUTO) 3.8 x10^3/uL (2.2-4.8); NEUTROPHILS % (AUTO) 64.4 % (42.0-75.0); RED CELL DISTRIBUTION WIDTH 13.7 % (11.6-16.5); WHITE BLOOD COUNT 5.9 X10^3/uL (3.6-10.0)
[2021-11-05 05:43] LABS: ALANINE AMINOTRANSFERASE 11 Units/L (12-78); ALBUMIN 2.9 g/dL (3.4-5.0); ALKALINE PHOSPHATASE 67 Units/L (46-116); ASPARTATE AMINO TRANSFERASE 15 Units/L (15-37); BLOOD UREA NITROGEN 4 mg/dL (7-18); CALCIUM 7.9 mg/dL (8.5-10.1); CARBON DIOXIDE 23.1 mmol/L (21-32); CHLORIDE 103 mmol/L (98-107); COR CA(FOR HYPOALB) 8.8 mg/dL (8.5-10.1); CREATININE 0.42 mg/dL (0.55-1.02); SODIUM 138 mmol/L (136-145); eGFR NON BLACK RACES > 60 (>60)
[2021-11-05] MEDS: PYRIDIUM PO SCH ×3 (06:04→17:07)
[2021-11-05] MEDS ORDERED: NS 100 ML IV 100 ML ONE (08:18)
--- NOTE | 2021-11-05 10:01 | PCM.PROG ---
Progress Note - Progress Note for Day of Date of Exam: 11/04/21 - Subjective Subjective: WAS ADMITTED FOR TREATMENT OF ACUTE HYPONATREMIA, ACUTE UTI, GASTRITIS, JU, BENIGN HYPERTENSION, HYPOKALEMIA, AND DEHYDRATION. TODAY, SHE IS ALERT AND ORIENTED, SITTING UP IN BED ON MORNING ROUNDS. SHE CONTINUES WITH COMPLAINTS OF GENERALIZED WEAKNESS, FATIGUE, LOWER ABDOMINAL PAIN, AND DECREASED APPETITE. SHE CONTINUES WITH NAUSEA, BUT DENIES VOMITING. SHE DENIES A BOWEL MOVEMENT IN SEVERAL DAYS. PATIENTS FAMILY MEMBER IS AT BEDSIDE AND REPORTS THAT PATIENT WILL NOT EAT AT HOME. ON EXAMINATION, HEART IS REGULAR IN RATE AND RHYTHM. BILATERAL LUNGS CLEAR TO AUSCULTATION. ABDOMEN IS ROUND, SOFT, AND NOTED WITH MILD SUPRAPUBIC TENDERNESS. NORMAL BOWEL SOUNDS NOTED IN ALL QUAD RANTS. NO LOWER OR UPPER EXTREMITY EDEMA NOTED. HER VITALS THIS MORNING ARE: 97.9-70-18-97%-161/73. LABS WERE OBTAINED. ABNORMAL LAB VALUES INCLUDE THE FOLLOWING: SODIUM 130, POTASSIUM 3.2, CHLORIDE 96, BUN 4, CREATININE 0.44, CALCIUM 7.9, ALBUMIN 3.3. AN ABDOMEN/PELVIS CT WITHOUT CONTRAST WAS OBTAINED YESTERDAY AND REVEALED: 1. No acute intra-abdominal abnormality detected. 2. Colonic diverticulosis without diverticulitis. A KUB WAS OBTAINED THIS MORNING AND REVEALED: Interval progression of the oral contrast now seen in the mid transverse colon, no abnormal dilated small bowel loops. Increase density in the lower pelvis likely distended urinary bladder seen on prior CT. SHE IS CURRENTLY RECEIVING NORMAL SALINE WITH 20MEQ KCL AT 75 ML/HR, ROCEPHN 1G IV DAILY, ZOFRAN 4MG IV Q8H PRN, PROTONIX 40MG IV BID, PHENERGAN 12.5MG IM Q6H PRN, AND HER HOME MEDICATIONS WERE RESUMED. WE WILL CONTINUE WITH CURRENT PLAN OF CARE TODAY. OTHERWISE, WE WILL FOLLOW UP WITH AM LABS AND CONTINUE TO MONITOR. TIME SPENT ON CLINICAL ASSESSMENT, REVIEWING LABS AND IMAGING, DECISION MAKING, AND DOCUMENTATION GREATER THAN 45 MINUTES. - Past Medical Family Social History Past Med/Fam/Surg Hx: No changes since H&P Allergies: Allergies Penicillins Adverse Reaction (Verified 06/25/20 14:05) pseudoephedrine Adverse Reaction (Verified 06/25/20 14:05) Sulfa (Sulfonamide Antibiotics) [SULFA] Adverse Reaction (Verified 06/25/20 14:05) triprolidine Adverse Reaction (Verified 06/25/20 14:05) - Review of Systems ROS: No change since H&P - Vital Signs and I&O's Vital Signs: Temperature 98.3 F Pulse Rate [Left Brachial] 80 Pulse Rate 64 Respiratory Rate 22 Blood Pressure [Left Arm] 156/72 Blood Pressure 161/80 O2 Sat by Pulse Oximetry 95 Intake and Output: Intake & Output 11/02/21 11/03/21 11/04/21 11/05/21 11:59 11:59 11:59 11:59 Intake Total 1844 / 1844 1971 / 1971 3077 / 3077 3204 / 3204 Output Total 300 / 300 1100 / 1100 300 / 300 Balance 1544 / 1544 872 / 872 2777 / 2777 3204 / 3204 - Physical Exam Oriented: Normal Eyes: Normal Ear: Normal Nose: Normal Throat: Dry Respiratory: Normal, Generalized Cardiovascular: Normal : Normal Auscultation: Bowel Sounds: Normal Palpation: Normal Tenderness: Epigastric, Suprapubic (MILD ) Skin: Decreased Turgur Musculoskeletal: Back:Lumbar, Instability (GAIT SLOW AND CAUTIOUS) Psychiatric: Anxiety Mood Description: Depressed Affect: Depressed Speech Pattern: Clear, Appropriate - Laboratory and Diagnostics Result Diagrams: 11/05/21 05:05 11/05/21 05:05 Labs: 11/02/21 11:12 Urine,Clean Catch Urine Culture - Final Laboratory WBC 5.9 X10^3/uL (3.6-10.0) 11/05/21 05:05 RBC 4.10 X10^6/uL (3.5-5.4) 11/05/21 05:05 Hgb 12.8 g/dL (12.0-16.0) 11/05/21 05:05 Hct 37.4 % (36.0-47.0) 11/05/21 05:05 MCV 91.2 fL (80.0-100.0) 11/05/21 05:05 MCH 31.3 pg (27.0-34.0) 11/05/21 05:05 MCHC 34.4 g/dL (33.0-35.0) 11/05/21 05:05 RDW 13.7 % (11.6-16.5) 11/05/21 05:05 Plt Count 177 X10^3/uL (150.0-450.0) 11/05/21 05:05 MPV 8.3 fL (7.4-11.0) 11/05/21 05:05 Neut % (Auto) 64.4 % (42.0-75.0) 11/05/21 05:05 Lymph % (Auto) 20.3 % (21.0-51.0) L 11/05/21 05:05 [place] % (Auto) 10.2 % (0.0-13.0) 11/05/21 05:05 Eos % (Auto) 4.7 % (0.9-2.9) H 11/05/21 05:05 Baso % (Auto) 0.4 % (0.2-1.0) 11/05/21 05:05 Neut # (Auto) 3.8 x10^3/uL (2.2-4.8) 11/05/21 05:05 Lymph # (Auto) 1.2 X10^3/uL (1.3-2.9) L 11/05/21 05:05 [place] # (Auto) 0.6 x10^3/uL (0.3-0.8) 11/05/21 05:05 Eos # (Auto) 0.3 x10^3/uL (0.0-0.2) H 11/05/21 05:05 Baso # (Auto) 0.0 X10^3/uL (0.0-0.1) 11/05/21 05:05 Absolute Nucleated RBC 0.1 /100WBC 11/05/21 05:05 Sodium 138 mmol/L (136-145) 11/05/21 05:05 Corrected Sodium TNP 11/05/21 05:05 Potassium 3.3 mmol/L (3.5-5.1) L 11/05/21 05:05 Chloride 103 mmol/L (98-107) 11/05/21 05:05 Carbon Dioxide 23.1 mmol/L (21-32) 11/05/21 05:05 BUN 4 mg/dL (7-18) L 11/05/21 05:05 Creatinine 0.42 mg/dL (0.55-1.02) L 11/05/21 05:05 Est GFR (MDRD) Af Amer > 60 (>60) 11/05/21 05:05 Est GFR (MDRD) Non-Af > 60 (>60) 11/05/21 05:05 Glucose 85 mg/dL (65-99) 11/05/21 05:05 Calcium 7.9 mg/dL (8.5-10.1) L 11/05/21 05:05 Corrected Calcium 8.8 mg/dL (8.5-10.1) 11/05/21 05:05 Magnesium 1.8 mg/dL (1.7-2.9) 11/04/21 05:22 Total Bilirubin 0.50 mg/dL (0.2-1.0) 11/05/21 05:05 AST 15 Units/L (15-37) 11/05/21 05:05 ALT 11 Units/L (12-78) L 11/05/21 05:05 Alkaline Phosphatase 67 Units/L (46-116) 11/05/21 05:05 Total Protein 6.0 g/dL (6.4-8.2) L 11/05/21 05:05 Albumin 2.9 g/dL (3.4-5.0) L 11/05/21 05:05 Globulin 3.1 g/dL (2.5-4.5) 11/05/21 05:05 Albumin/Globulin Ratio 0.9 Ratio (1.1-2.1) L 11/05/21 05:05 Lipase 77 Units/L (73-393) 11/01/21 07:50 Specimen Type Clean catch urine 11/01/21 09:20 Urine Color Pale yellow (YELLOW) 11/01/21 09:20 Urine Appearance Cloudy (CLEAR) 11/01/21 09:20 Urine pH 8.0 (5.0 - 8.0) 11/01/21 09:20 Ur Specific [place] 1.015 (1.000-1.030) 11/01/21 09:20 Urine Protein Negative (NEGATIVE) 11/01/21 09:20 Urine Glucose (UA) Negative (NEGATIVE) 11/01/21 09:20 Urine Ketones 2+ (NEGATIVE) 11/01/21 09:20 Urine Occult Blood 3+ (NEGATIVE) 11/01/21 09:20 Urine Nitrite Negative (NEGATIVE) 11/01/21 09:20 Urine Bilirubin Negative (NEGATIVE) 11/01/21 09:20 Urine Urobilinogen Normal (NORMAL) 11/01/21 09:20 Ur Leukocyte Esterase 1+ (NEGATIVE) 11/01/21 09:20 Urine RBC 3-5 /HPF (0-3) A 11/01/21 09:20 Urine WBC 0-2 /HPF (0-5) 11/01/21 09:20 Ur Squamous Epith Cells Few /HPF (NEGATIVE) 11/01/21 09:20 Amorphous Sediment 1+ /HPF (NEGATIVE) 11/01/21 09:20 Urine Bacteria Trace /HPF (NEGATIVE) 11/01/21 09:20 Ur Culture Indicated? No/not indicated 11/01/21 09:20 SARS CoV-2 RNA Rapid JANELL Negative (NEGATIVE) 11/01/21 07:50 - Plan (1) Acute hyponatremia Status: Acute Plan: IV HYDRATION, IV ATBX. BP CONTROL, URINE CULTURE. CONTINUE HOME MEDS. NAUSEA CONTROL (2) Acute UTI (urinary tract infection) Status: Acute (3) Acute hypokalemia Status: Acute (4) Gastritis Status: Acute Qualifiers: Gastritis type: unspecified gastritis Chronicity: acute Gastritis bleeding: without bleeding Qualified Code(s): K29.00 - Acute gastritis without bleeding (5) Dehydration Status: Acute (6) Benign hypertension Status: Active
[2021-11-05] MEDS: COLACE CAP 100 MG PO SCH ×2 (10:36→20:54)
[2021-11-05] MEDS: SINGULAIR TAB 10 MG PO SCH (10:37)
[2021-11-05] MEDS: CRESTOR TAB 10 MG PO SCH (10:37)
[2021-11-05] MEDS: MEGACE PO SCH ×2 (10:37→20:55)
[2021-11-05] MEDS: PROTONIX INJ 40 MG VIAL IVP SCH ×2 (10:37→20:55)
[2021-11-05] MEDS: TOPROL XL PO SCH (10:37)
[2021-11-05] MEDS: PEPCID TAB 20 MG PO SCH ×2 (10:37→20:55)
[2021-11-05] MEDS: ROCEPHIN VIAL 1 GRAM IV SCH (10:37)
[2021-11-05] MEDS: ZESTRIL TAB 10 MG PO SCH (10:38)
[2021-11-05] MEDS: ZyrTEC TAB 10 MG PO SCH (10:38)
--- NOTE | 2021-11-05 10:49 | PCM.PROG ---
Progress Note - Progress Note for Day of Date of Exam: 11/05/21 - Subjective Subjective: WAS ADMITTED FOR TREATMENT OF ACUTE HYPONATREMIA, ACUTE UTI, GASTRITIS, JU, BENIGN HYPERTENSION, HYPOKALEMIA, AND DEHYDRATION. TODAY, SHE IS ALERT AND ORIENTED, SITTING UP IN BED ON MORNING ROUNDS. SHE CONTINUES WITH COMPLAINTS OF GENERALIZED WEAKNESS, FATIGUE, AND DECREASED APPETITE. SHE DENIES NAUSEA OR VOMITING TODAY. SHE CONTINUES TO DENY A BOWEL MOVEMENT IN SEVERAL DAYS. SHE REPORTS THAT SUPRAPUBIC PAIN HAS SLIGHTLY IMPROVED. ACCORDING TO PATIENTS FAMILY MEMBER, PATIENT DOES HAVE MAJOR DEPRESSIVE DISORDER AND CURRENTLY HAS VISITS WITH BEHAVIORAL HEALTH TWICE A WEEK. ON EXAMINATION, HEART IS REGULAR IN RATE AND RHYTHM. BILATERAL LUNGS CLEAR TO AUSCULTATION. ABDOMEN IS ROUND, SOFT, AND NOTED WITH MILD SUPRAPUBIC TENDERNESS. NORMAL BOWEL SOUNDS NOTED IN ALL QUADRANTS. NO LOWER OR UPPER EXTREMITY EDEMA NOTED. HER VITALS THIS MORNING ARE: 98.3-80-22-95%-156/72. LABS WERE OBTAINED. ABNORMAL LAB VALUES INCLUDE THE FOLLOWING: POTASSIUM 3.3, BUN 4, CREATININE 0.42, CALCIUM 7.9, ALT 11, TOTAL PROTEIN 6.0, ALBUMIN 2.9. A URINE CULTURE IS PENDING. A KUB WAS OBTAINED YESTERDAY AND REVEALED: Interval progression of the oral contrast now seen in the mid transverse colon, no abnormal dilated small bowel loops. Increase density in the lower pelvis likely distended urinary bladder seen on prior CT. SHE IS CURRENTLY RECEIVING NORMAL SALINE WITH 20MEQ KCL AT 75 ML/HR, ROCEPHN 1G IV DAILY, ZOFRAN 4MG IV Q8H PRN, PROTONIX 40MG IV BID, PHENERGAN 12.5MG IM Q6H PRN, AND HER HOME MEDICATIONS WERE RESUMED. TODAY, WE WILL ADD CYMBALTA 30MG PO DAILY, AND INCREASE HER DIET TO SOFT. WE WILL ALSO ADD COLACE 100MG PO BID AN MIRALAX 17G PO DAILY. OTHERWISE, WE WILL FOLLOW UP WITH AM LABS AND CONTINUE TO MONITOR. TIME SPENT ON CLINICAL ASSESSMENT, REVIEWING LABS AND IMAGING, DECISION MAKING, AND DOCUMENTATION GREATER THAN 45 MINUTES. - Past Medical Family Social History Past Med/Fam/Surg Hx: No changes since H&P Allergies: Allergies Penicillins Adverse Reaction (Verified 06/25/20 14:05) pseudoephedrine Adverse Reaction (Verified 06/25/20 14:05) Sulfa (Sulfonamide Antibiotics) [SULFA] Adverse Reaction (Verified 06/25/20 14:05) triprolidine Adverse Reaction (Verified 06/25/20 14:05) - Review of Systems ROS: No change since H&P - Vital Signs and I&O's Vital Signs: Temperature 98.3 F Pulse Rate [Left Brachial] 80 Pulse Rate 64 Respiratory Rate 22 Blood Pressure [Left Arm] 156/72 Blood Pressure 161/80 O2 Sat by Pulse Oximetry 95 Intake and Output: Intake & Output 11/02/21 11/03/21 11/04/21 11/05/21 11:59 11:59 11:59 11:59 Intake Total 1844 / 1844 1971 / 1971 3077 / 3077 3204 / 3204 Output Total 300 / 300 1100 / 1100 300 / 300 Balance 1544 / 1544 872 / 872 2777 / 2777 3204 / 3204 - Physical Exam Oriented: Normal Eyes: Normal Ear: Normal Nose: Normal Throat: Dry Respiratory: Normal, Generalized Cardiovascular: Normal : Normal Auscultation: Bowel Sounds: Normal Tenderness: Epigastric, Suprapubic (MILD ) Skin: Decreased Turgur Musculoskeletal: Back:Lumbar, Instability (GAIT SLOW AND CAUTIOUS) Psychiatric: Anxiety Mood Description: Depressed Affect: Depressed Speech Pattern: Clear, Appropriate - Laboratory and Diagnostics Result Diagrams: 11/05/21 05:05 11/05/21 05:05 Labs: 11/02/21 11:12 Urine,Clean Catch Urine Culture - Final Laboratory WBC 5.9 X10^3/uL (3.6-10.0) 11/05/21 05:05 RBC 4.10 X10^6/uL (3.5-5.4) 11/05/21 05:05 Hgb 12.8 g/dL (12.0-16.0) 11/05/21 05:05 Hct 37.4 % (36.0-47.0) 11/05/21 05:05 MCV 91.2 fL (80.0-100.0) 11/05/21 05:05 MCH 31.3 pg (27.0-34.0) 11/05/21 05:05 MCHC 34.4 g/dL (33.0-35.0) 11/05/21 05:05 RDW 13.7 % (11.6-16.5) 11/05/21 05:05 Plt Count 177 X10^3/uL (150.0-450.0) 11/05/21 05:05 MPV 8.3 fL (7.4-11.0) 11/05/21 05:05 Neut % (Auto) 64.4 % (42.0-75.0) 11/05/21 05:05 Lymph % (Auto) 20.3 % (21.0-51.0) L 11/05/21 05:05 [place] % (Auto) 10.2 % (0.0-13.0) 11/05/21 05:05 Eos % (Auto) 4.7 % (0.9-2.9) H 11/05/21 05:05 Baso % (Auto) 0.4 % (0.2-1.0) 11/05/21 05:05 Neut # (Auto) 3.8 x10^3/uL (2.2-4.8) 11/05/21 05:05 Lymph # (Auto) 1.2 X10^3/uL (1.3-2.9) L 11/05/21 05:05 [place] # (Auto) 0.6 x10^3/uL (0.3-0.8) 11/05/21 05:05 Eos # (Auto) 0.3 x10^3/uL (0.0-0.2) H 11/05/21 05:05 Baso # (Auto) 0.0 X10^3/uL (0.0-0.1) 11/05/21 05:05 Absolute Nucleated RBC 0.1 /100WBC 11/05/21 05:05 Sodium 138 mmol/L (136-145) 11/05/21 05:05 Corrected Sodium TNP 11/05/21 05:05 Potassium 3.3 mmol/L (3.5-5.1) L 11/05/21 05:05 Chloride 103 mmol/L (98-107) 11/05/21 05:05 Carbon Dioxide 23.1 mmol/L (21-32) 11/05/21 05:05 BUN 4 mg/dL (7-18) L 11/05/21 05:05 Creatinine 0.42 mg/dL (0.55-1.02) L 11/05/21 05:05 Est GFR (MDRD) Af Amer > 60 (>60) 11/05/21 05:05 Est GFR (MDRD) Non-Af > 60 (>60) 11/05/21 05:05 Glucose 85 mg/dL (65-99) 11/05/21 05:05 Calcium 7.9 mg/dL (8.5-10.1) L 11/05/21 05:05 Corrected Calcium 8.8 mg/dL (8.5-10.1) 11/05/21 05:05 Magnesium 1.8 mg/dL (1.7-2.9) 11/04/21 05:22 Total Bilirubin 0.50 mg/dL (0.2-1.0) 11/05/21 05:05 AST 15 Units/L (15-37) 11/05/21 05:05 ALT 11 Units/L (12-78) L 11/05/21 05:05 Alkaline Phosphatase 67 Units/L (46-116) 11/05/21 05:05 Total Protein 6.0 g/dL (6.4-8.2) L 11/05/21 05:05 Albumin 2.9 g/dL (3.4-5.0) L 11/05/21 05:05 Globulin 3.1 g/dL (2.5-4.5) 11/05/21 05:05 Albumin/Globulin Ratio 0.9 Ratio (1.1-2.1) L 11/05/21 05:05 Lipase 77 Units/L (73-393) 11/01/21 07:50 Specimen Type Clean catch urine 11/01/21 09:20 Urine Color Pale yellow (YELLOW) 11/01/21 09:20 Urine Appearance Cloudy (CLEAR) 11/01/21 09:20 Urine pH 8.0 (5.0 - 8.0) 11/01/21 09:20 Ur Specific [place] 1.015 (1.000-1.030) 11/01/21 09:20 Urine Protein Negative (NEGATIVE) 11/01/21 09:20 Urine Glucose (UA) Negative (NEGATIVE) 11/01/21 09:20 Urine Ketones 2+ (NEGATIVE) 11/01/21 09:20 Urine Occult Blood 3+ (NEGATIVE) 11/01/21 09:20 Urine Nitrite Negative (NEGATIVE) 11/01/21 09:20 Urine Bilirubin Negative (NEGATIVE) 11/01/21 09:20 Urine Urobilinogen Normal (NORMAL) 11/01/21 09:20 Ur Leukocyte Esterase 1+ (NEGATIVE) 11/01/21 09:20 Urine RBC 3-5 /HPF (0-3) A 11/01/21 09:20 Urine WBC 0-2 /HPF (0-5) 11/01/21 09:20 Ur Squamous Epith Cells Few /HPF (NEGATIVE) 11/01/21 09:20 Amorphous Sediment 1+ /HPF (NEGATIVE) 11/01/21 09:20 Urine Bacteria Trace /HPF (NEGATIVE) 11/01/21 09:20 Ur Culture Indicated? No/not indicated 11/01/21 09:20 SARS CoV-2 RNA Rapid JANELL Negative (NEGATIVE) 11/01/21 07:50 - Plan (1) Acute hyponatremia Status: Acute Plan: IV HYDRATION, IV ATBX. BP CONTROL, URINE CULTURE. CONTINUE HOME MEDS. NAUSEA CONTROL (2) Acute UTI (urinary tract infection) Status: Acute (3) Acute hypokalemia Status: Acute (4) Gastritis Status: Acute Qualifiers: Gastritis type: unspecified gastritis Chronicity: acute Gastritis bleeding: without bleeding Qualified Code(s): K29.00 - Acute gastritis without bleeding (5) Dehydration Status: Acute (6) Benign hypertension Status: Active (7) Major depressive disorder Status: Chronic Qualifiers: Major depression recurrence: recurrent Active/Remission status: currently active Major depression episode severity: moderate Qualified Code(s): F33.1 - Major depressive disorder, recurrent, moderate Plan: CYMBALTA 30MG PO DAILY
[2021-11-05] MEDS: CYMBALTA PO SCH (11:02)
[2021-11-05] MEDS: MIRALAX POWDER (1 DOSE 17 G) PO SCH (11:02)
[2021-11-05] MEDS: DESYREL PO SCH (20:55)
[2021-11-06] MEDS: NS + KCL 20 MEQ/L 1,000 ML IV SCH ×3 (03:20→21:01)
[2021-11-06] MEDS: PYRIDIUM PO SCH ×3 (06:07→16:49)
[2021-11-06] MEDS: ZOFRAN INJ 4 MG VIAL IVP PRN ×2 (06:08→18:08)
[2021-11-06 06:48] LABS: BASOPHILS % (AUTO) 0.6 % (0.2-1.0); EOSINOPHILS # (AUTO) 0.4 x10^3/uL (0.0-0.2); EOSINOPHILS % (AUTO) 5.6 % (0.9-2.9); HEMATOCRIT 36.3 % (36.0-47.0); HEMOGLOBIN 12.4 g/dL (12.0-16.0); LYMPHOCYTES # (AUTO) 1.6 X10^3/uL (1.3-2.9); MEAN CORPUSCULAR HEMOGLOBIN 31.5 pg (27.0-34.0); MEAN CORPUSCULAR HGB CONC 34.3 g/dL (33.0-35.0); MEAN CORPUSCULAR VOLUME 91.8 fL (80.0-100.0); MEAN PLATELET VOLUME 8.9 fL (7.4-11.0); MONOCYTES # (AUTO) 0.5 x10^3/uL (0.3-0.8); MONOCYTES % (AUTO) 7.2 % (0.0-13.0); NEUTROPHILS # (AUTO) 4.4 x10^3/uL (2.2-4.8); NEUTROPHILS % (AUTO) 63.6 % (42.0-75.0); RED BLOOD COUNT 3.95 X10^6/uL (3.5-5.4); RED CELL DISTRIBUTION WIDTH 13.6 % (11.6-16.5); WHITE BLOOD COUNT 6.9 X10^3/uL (3.6-10.0)
[2021-11-06 07:10] LABS: ALANINE AMINOTRANSFERASE 9 Units/L (12-78); ALBUMIN 2.9 g/dL (3.4-5.0); ALKALINE PHOSPHATASE 67 Units/L (46-116); ASPARTATE AMINO TRANSFERASE 16 Units/L (15-37); BLOOD UREA NITROGEN 4 mg/dL (7-18); CALCIUM 7.9 mg/dL (8.5-10.1); CARBON DIOXIDE 23.7 mmol/L (21-32); CHLORIDE 104 mmol/L (98-107); COR CA(FOR HYPOALB) 8.8 mg/dL (8.5-10.1); CREATININE 0.37 mg/dL (0.55-1.02); SODIUM 136 mmol/L (136-145); TOTAL PROTEIN 6.1 g/dL (6.4-8.2); eGFR NON BLACK RACES > 60 (>60)
[2021-11-06] MEDS ORDERED: NS 100 ML IV 100 ML ONE (07:55)
[2021-11-06] MEDS: PHENERGAN INJ 25 MG IM PRN (08:37)
[2021-11-06] MEDS: COLACE CAP 100 MG PO SCH ×2 (08:38→21:01)
[2021-11-06] MEDS: CRESTOR TAB 10 MG PO SCH (08:38)
[2021-11-06] MEDS: ZESTRIL TAB 10 MG PO SCH (08:38)
[2021-11-06] MEDS: CYMBALTA PO SCH (08:38)
[2021-11-06] MEDS: PROTONIX INJ 40 MG VIAL IVP SCH ×2 (08:39→21:01)
[2021-11-06] MEDS: ZyrTEC TAB 10 MG PO SCH (08:39)
[2021-11-06] MEDS: SINGULAIR TAB 10 MG PO SCH (08:39)
[2021-11-06] MEDS: MEGACE PO SCH ×2 (08:39→21:01)
[2021-11-06] MEDS: ROCEPHIN VIAL 1 GRAM IV SCH (08:39)
[2021-11-06] MEDS: MIRALAX POWDER (1 DOSE 17 G) PO SCH (08:39)
[2021-11-06] MEDS: TOPROL XL PO SCH (08:39)
[2021-11-06] MEDS: PEPCID TAB 20 MG PO SCH ×2 (08:39→21:01)
[2021-11-06] MEDS ORDERED: DULCOLAX SUPPOSITORY 10 MG RECTAL ONE (09:48)
[2021-11-06] MEDS: MILK OF MAGNESIA PO SCH ×2 (10:15→21:01)
--- NOTE | 2021-11-06 10:43 | PCM.PROG ---
Progress Note - Progress Note for Day of Date of Exam: 11/06/21 - Subjective Subjective: WAS ADMITTED FOR TREATMENT OF ACUTE HYPONATREMIA, ACUTE UTI, GASTRITIS, JU, BENIGN HYPERTENSION, HYPOKALEMIA, AND DEHYDRATION. TODAY, SHE IS ALERT AND ORIENTED, SITTING UP IN BED ON MORNING ROUNDS. SHE CONTINUES WITH COMPLAINTS OF GENERALIZED WEAKNESS, FATIGUE, ABDOMINAL PAIN, AND NAUSEA. SHE CONTINUES TO DENY HAVING A BOWEL MOVEMENT IN SEVERAL DAYS. SHE DESCRIBES ABDOMINAL PAIN CRAMPING AND DIFFUSE. ON EXAMINATION, HEART IS REGULAR IN RATE AND RHYTHM. BILATERAL LUNGS CLEAR TO AUSCULTATION. ABDOMEN IS ROUND, SOFT, AND NOTED WITH MILD DIFFUSE TENDERNESS. HYPOACTIVE BOWEL SOUNDS NOTED IN ALL QUADRANTS. NO LOWER OR UPPER EXTREMITY EDEMA NOTED. HER VITALS THIS MORNING ARE: 98.4-100-22-96%-120/58. LABS WERE OBTAINED. ABNORMAL LAB VALUES INCLUDE THE FOLLOWING: POTASSIUM 3.3M BUN 4, CREATININE 0.37, CALCIUM 7.9, ALT 9, TOTAL PROTEIN 6.1, ALBUMIN 2.9. SHE IS CURRENTLY RECEIVING NORMAL SALINE WITH 20MEQ KCL AT 75 ML/HR, ROCEPHN 1G IV DAILY, ZOFRAN 4MG IV Q8H PRN, PROTONIX 40MG IV BID, PHENERGAN 12.5MG IM Q6H PRN, CYMBALTA 30MG PO DAILY, COLACE 100MG PO BID, MIRALAX 17G PO DAILY, AND HER HOME MEDICATIONS WERE RESUMED. SHE TOLERATED A SOFT DIET WELL YESTERDAY. WE TODAY, WE WILL ADD MILK OF MAGNESIA 30ML PO BID, BENTYL 20MG PO QID, AND WILL CONSULT WITH DUE TO PERSISTENT ABDOMINAL PAIN, NAUSEA, AND CONSTIPATION. OTHERWISE, WE WILL FOLLOW UP WITH AM LABS AND CONTINUE TO MONITOR. TIME SPENT ON CLINICAL ASSESSMENT, REVIEWING LABS AND IMAGING, DECISION MAKING, AND DOCUMENTATION GREATER THAN 45 MINUTES. - Past Medical Family Social History Past Med/Fam/Surg Hx: No changes since H&P Allergies: Allergies Penicillins Adverse Reaction (Verified 06/25/20 14:05) pseudoephedrine Adverse Reaction (Verified 06/25/20 14:05) Sulfa (Sulfonamide Antibiotics) [SULFA] Adverse Reaction (Verified 06/25/20 14:05) triprolidine Adverse Reaction (Verified 06/25/20 14:05) - Review of Systems ROS: No change since H&P - Vital Signs and I&O's Vital Signs: Temperature 98.4 F Pulse Rate [Left Brachial] 106 Pulse Rate 64 Respiratory Rate 22 Blood Pressure [Left Arm] 120/58 Blood Pressure 161/80 O2 Sat by Pulse Oximetry 96 Intake and Output: Intake & Output 11/03/21 11/04/21 11/05/21 11/06/21 11:59 11:59 11:59 11:59 Intake Total 1971 3077 / 3077 3204 / 3204 2977 / 2977 Output Total 1100 / 1100 300 / 300 Balance 872 / 872 2777 / 2777 3204 / 3204 2977 / 2977 - Physical Exam Oriented: Normal Eyes: Normal Ear: Normal Nose: Normal Throat: Dry Respiratory: Normal, Generalized Cardiovascular: Normal : Normal Auscultation: Bowel Sounds: Normal Palpation: Normal Tenderness: Diffuse Skin: Decreased Turgur Musculoskeletal: Back:Lumbar, Instability (GAIT SLOW AND CAUTIOUS) Psychiatric: Anxiety Mood Description: Depressed Affect: Depressed Speech Pattern: Clear, Appropriate - Laboratory and Diagnostics Result Diagrams: 11/06/21 05:54 11/06/21 05:54 Labs: 11/02/21 11:12 Urine,Clean Catch Urine Culture - Final Laboratory WBC 6.9 X10^3/uL (3.6-10.0) 11/06/21 05:54 RBC 3.95 X10^6/uL (3.5-5.4) 11/06/21 05:54 Hgb 12.4 g/dL (12.0-16.0) 11/06/21 05:54 Hct 36.3 % (36.0-47.0) 11/06/21 05:54 MCV 91.8 fL (80.0-100.0) 11/06/21 05:54 MCH 31.5 pg (27.0-34.0) 11/06/21 05:54 MCHC 34.3 g/dL (33.0-35.0) 11/06/21 05:54 RDW 13.6 % (11.6-16.5) 11/06/21 05:54 Plt Count 174 X10^3/uL (150.0-450.0) 11/06/21 05:54 MPV 8.9 fL (7.4-11.0) 11/06/21 05:54 Neut % (Auto) 63.6 % (42.0-75.0) 11/06/21 05:54 Lymph % (Auto) 23.0 % (21.0-51.0) 11/06/21 05:54 [place] % (Auto) 7.2 % (0.0-13.0) 11/06/21 05:54 Eos % (Auto) 5.6 % (0.9-2.9) H 11/06/21 05:54 Baso % (Auto) 0.6 % (0.2-1.0) 11/06/21 05:54 Neut # (Auto) 4.4 x10^3/uL (2.2-4.8) 11/06/21 05:54 Lymph # (Auto) 1.6 X10^3/uL (1.3-2.9) 11/06/21 05:54 [place] # (Auto) 0.5 x10^3/uL (0.3-0.8) 11/06/21 05:54 Eos # (Auto) 0.4 x10^3/uL (0.0-0.2) H 11/06/21 05:54 Baso # (Auto) 0.0 X10^3/uL (0.0-0.1) 11/06/21 05:54 Absolute Nucleated RBC 0.0 /100WBC 11/06/21 05:54 Sodium 136 mmol/L (136-145) 11/06/21 05:54 Corrected Sodium TNP 11/06/21 05:54 Potassium 3.3 mmol/L (3.5-5.1) L 11/06/21 05:54 Chloride 104 mmol/L (98-107) 11/06/21 05:54 Carbon Dioxide 23.7 mmol/L (21-32) 11/06/21 05:54 BUN 4 mg/dL (7-18) L 11/06/21 05:54 Creatinine 0.37 mg/dL (0.55-1.02) L 11/06/21 05:54 Est GFR (MDRD) Af Amer > 60 (>60) 11/06/21 05:54 Est GFR (MDRD) Non-Af > 60 (>60) 11/06/21 05:54 Glucose 96 mg/dL (65-99) 11/06/21 05:54 Calcium 7.9 mg/dL (8.5-10.1) L 11/06/21 05:54 Corrected Calcium 8.8 mg/dL (8.5-10.1) 11/06/21 05:54 Magnesium 1.8 mg/dL (1.7-2.9) 11/04/21 05:22 Total Bilirubin 0.30 mg/dL (0.2-1.0) 11/06/21 05:54 AST 16 Units/L (15-37) 11/06/21 05:54 ALT 9 Units/L (12-78) L 11/06/21 05:54 Alkaline Phosphatase 67 Units/L (46-116) 11/06/21 05:54 Total Protein 6.1 g/dL (6.4-8.2) L 11/06/21 05:54 Albumin 2.9 g/dL (3.4-5.0) L 11/06/21 05:54 Globulin 3.2 g/dL (2.5-4.5) 11/06/21 05:54 Albumin/Globulin Ratio 0.9 Ratio (1.1-2.1) L 11/06/21 05:54 Lipase 77 Units/L (73-393) 11/01/21 07:50 Specimen Type Clean catch urine 11/01/21 09:20 Urine Color Pale yellow (YELLOW) 11/01/21 09:20 Urine Appearance Cloudy (CLEAR) 11/01/21 09:20 Urine pH 8.0 (5.0 - 8.0) 11/01/21 09:20 Ur Specific [place] 1.015 (1.000-1.030) 11/01/21 09:20 Urine Protein Negative (NEGATIVE) 11/01/21 09:20 Urine Glucose (UA) Negative (NEGATIVE) 11/01/21 09:20 Urine Ketones 2+ (NEGATIVE) 11/01/21 09:20 Urine Occult Blood 3+ (NEGATIVE) 11/01/21 09:20 Urine Nitrite Negative (NEGATIVE) 11/01/21 09:20 Urine Bilirubin Negative (NEGATIVE) 11/01/21 09:20 Urine Urobilinogen Normal (NORMAL) 11/01/21 09:20 Ur Leukocyte Esterase 1+ (NEGATIVE) 11/01/21 09:20 Urine RBC 3-5 /HPF (0-3) A 11/01/21 09:20 Urine WBC 0-2 /HPF (0-5) 11/01/21 09:20 Ur Squamous Epith Cells Few /HPF (NEGATIVE) 11/01/21 09:20 Amorphous Sediment 1+ /HPF (NEGATIVE) 11/01/21 09:20 Urine Bacteria Trace /HPF (NEGATIVE) 11/01/21 09:20 Ur Culture Indicated? No/not indicated 11/01/21 09:20 SARS CoV-2 RNA Rapid JANELL Negative (NEGATIVE) 11/01/21 07:50 - Plan (1) Acute hyponatremia Status: Acute Plan: IV HYDRATION, IV ATBX. BP CONTROL, URINE CULTURE. CONTINUE HOME MEDS. NAUSEA CONTROL (2) Acute UTI (urinary tract infection) Status: Acute (3) Acute hypokalemia Status: Acute (4) Gastritis Status: Acute Qualifiers: Gastritis type: unspecified gastritis Chronicity: acute Gastritis bleeding: without bleeding Qualified Code(s): K29.00 - Acute gastritis without bleeding (5) Dehydration Status: Acute (6) Constipation Status: Acute Qualifiers: Constipation type: unspecified constipation type Qualified Code(s): K59.00 - Constipation, unspecified Plan: MILK OF MAGNESIA, COLACE, MIRALAX (7) Benign hypertension Status: Active (8) Major depressive disorder Status: Chronic Qualifiers: Major depression recurrence: recurrent Active/Remission status: currently active Major depression episode severity: moderate Qualified Code(s): F33.1 - Major depressive disorder, recurrent, moderate Plan: CYMBALTA 30MG PO DAILY
[2021-11-06] MEDS: BENTYL CAP 10 MG PO SCH ×4 (10:46→21:00)
[2021-11-06] MEDS ORDERED: MICRO K EXTEN CAP 10 MEQ PO PRN (10:52)
[2021-11-06] MEDS ORDERED: POTASSIUM CHLORIDE LIQ 20 MEQ UDC PO PRN (10:52)
[2021-11-06] MEDS ORDERED: POTASSIUM CHL 40 MEQ/NS 0.45% 500 ML IV PRN (10:52)
[2021-11-06] MEDS ORDERED: KLOR-CON PO PRN (10:52)
[2021-11-06] MEDS ORDERED: POTASSIUM CHL 60 MEQ/NS 0.45% 500 ML IV PRN (10:52)
[2021-11-06] MEDS ORDERED: K-RIDER 10 MEQ/NS 100 ML 10 MEQ/100 ML BAG IV PRN (10:52)
[2021-11-06] MEDS ORDERED: K-DUR TAB 20 MEQ PO PRN (10:52)
[2021-11-06] MEDS: DESYREL PO SCH (21:01)
[2021-11-07] MEDS: NS + KCL 20 MEQ/L 1,000 ML IV SCH ×2 (05:40→13:41)
[2021-11-07] MEDS: PYRIDIUM PO SCH ×2 (06:03→12:27)
[2021-11-07 06:20] LABS: BASOPHILS % (AUTO) 0.4 % (0.2-1.0); EOSINOPHILS # (AUTO) 0.2 x10^3/uL (0.0-0.2); EOSINOPHILS % (AUTO) 4.6 % (0.9-2.9); HEMATOCRIT 37.1 % (36.0-47.0); HEMOGLOBIN 12.7 g/dL (12.0-16.0); LYMPHOCYTES # (AUTO) 1.5 X10^3/uL (1.3-2.9); LYMPHOCYTES % (AUTO) 28.7 % (21.0-51.0); MEAN CORPUSCULAR HEMOGLOBIN 31.3 pg (27.0-34.0); MEAN CORPUSCULAR HGB CONC 34.2 g/dL (33.0-35.0); MEAN CORPUSCULAR VOLUME 91.7 fL (80.0-100.0); MONOCYTES # (AUTO) 0.4 x10^3/uL (0.3-0.8); MONOCYTES % (AUTO) 7.2 % (0.0-13.0); NEUTROPHILS # (AUTO) 3.1 x10^3/uL (2.2-4.8); NEUTROPHILS % (AUTO) 59.1 % (42.0-75.0); RED BLOOD COUNT 4.04 X10^6/uL (3.5-5.4); RED CELL DISTRIBUTION WIDTH 13.7 % (11.6-16.5); WHITE BLOOD COUNT 5.2 X10^3/uL (3.6-10.0)
[2021-11-07 06:26] LABS: ALANINE AMINOTRANSFERASE 12 Units/L (12-78); ALBUMIN 2.9 g/dL (3.4-5.0); ALKALINE PHOSPHATASE 67 Units/L (46-116); ASPARTATE AMINO TRANSFERASE 16 Units/L (15-37); BLOOD UREA NITROGEN 4 mg/dL (7-18); CALCIUM 7.9 mg/dL (8.5-10.1); CARBON DIOXIDE 27.5 mmol/L (21-32); CHLORIDE 102 mmol/L (98-107); COR CA(FOR HYPOALB) 8.8 mg/dL (8.5-10.1); SODIUM 135 mmol/L (136-145); eGFR NON BLACK RACES > 60 (>60)
[2021-11-07] MEDS ORDERED: NS 100 ML IV 100 ML ONE (09:18)
[2021-11-07] MEDS: BENTYL CAP 10 MG PO SCH ×2 (10:05→13:41)
[2021-11-07] MEDS: COLACE CAP 100 MG PO SCH (10:07)
[2021-11-07] MEDS: CRESTOR TAB 10 MG PO SCH (10:12)
[2021-11-07] MEDS: CYMBALTA PO SCH (10:12)
[2021-11-07] MEDS: MEGACE PO SCH (10:13)
[2021-11-07] MEDS: MILK OF MAGNESIA PO SCH (10:13)
[2021-11-07] MEDS: MIRALAX POWDER (1 DOSE 17 G) PO SCH (10:14)
[2021-11-07] MEDS: PEPCID TAB 20 MG PO SCH (10:16)
[2021-11-07] MEDS: PROTONIX INJ 40 MG VIAL IVP SCH (10:17)
[2021-11-07] MEDS: ROCEPHIN VIAL 1 GRAM IV SCH (10:19)
[2021-11-07] MEDS: SINGULAIR TAB 10 MG PO SCH (10:26)
[2021-11-07] MEDS: TOPROL XL PO SCH (10:27)
[2021-11-07] MEDS: ZESTRIL TAB 10 MG PO SCH (10:28)
[2021-11-07] MEDS: ZyrTEC TAB 10 MG PO SCH (11:22)
[2021-11-07] MEDS: ZOFRAN INJ 4 MG VIAL IVP PRN (11:27)
[2021-11-07 11:54] VITALS: BP 136/71
== END 2021-11-07 14:10 | disposition home health service (06) | DRG 392 ==
LOC: ER 07:14 → MED/SURG 12:17
PROVIDERS: ADMIT Internal Medicine; ATTEND Internal Medicine